=== PATIENT | male | born 1970 | race Caucasian/White ===

== ENCOUNTER 2020-10-30 12:09 | Outpatient (REF) | payer BC, SELFPAY ==
[2020-10-30 14:14] LABS: Estimated Average Glucose 220 mg/dL; Hemoglobin A1c % 9.3 %
[2020-10-30 14:24] LABS: Creatinine Urine 72.42 mg/dL; Microalbum/Creatinine Ratio Ur 106.3 ug/mg cr
[2020-10-30 14:39] LABS: Alanine Aminotransferase 44 U/L (0-40); Albumin Level 4.7 g/dL (3.5-5.0); Alkaline Phosphatase 74 U/L (39-117); Anion Gap 14 (12-20); Aspartate Amino Transferase 40 U/L (5-37); Bilirubin Total 0.9 mg/dL (0.0-1.0); Blood Urea Nitrogen 17 mg/dL (9-16); Calcium 9.5 mg/dL (8.4-10.2); Carbon Dioxide 28 mmol/L (22-29); Chloride 100 mmol/L (96-108); Estimated Glomerular Filt Rate > 60; Glucose Random 235 mg/dL (60-115); Potassium 3.7 mmol/l (3.3-5.1); Sodium 138 mmol/L (135-145); Total Protein 7.4 g/dL (6.5-8.0)
== END 2020-10-30 12:10 | disposition home or self-care (01) ==
LOC: HO.10HDL 12:09
PROVIDERS: Visit Provider Internal Medicine
DX: E11.9 Type 2 diabetes mellitus without complications (principal); J45.909 Unspecified asthma, uncomplicated; I10 Essential (primary) hypertension
CPT/HCPCS: 80053; 82043; 83036

== ENCOUNTER 2020-12-31 11:54 | Outpatient (REF) | payer BC, SELFPAY ==
[2020-12-31 13:56] LABS: MANUAL DIFF FLAG NO
[2020-12-31 14:12] LABS: Basophils Absolute Auto 0.1 X10*3/uL (0.0-0.2); Basophils Percent Auto 0.7 % (0-2); Eosinophils Absolute Auto 0.1 X10*3/uL (0.0-0.4); Eosinophils Percent Auto 1.3 % (0-4); Hematocrit 48.7 % (42-52); Imm Gran Abs Auto 0.04 X10*3/uL (0.00-0.03); Imm Gran Pct Auto 0.6 % (0.0-0.4); Lymphocytes Absolute Auto 1.8 X10*3/uL (1.2-4.9); Lymphocytes Percent Auto 24.6 % (20-40); Mean Corpuscular HGB Conc 32.9 g/dl (31.0-36.0); Mean Corpuscular Hemoglobin 30.4 pg (27.0-33.0); Mean Corpuscular Volume 92.6 fL (80-98); Mean Platelet Volume 10.8 fL (9.4-12.4); Monocytes Absolute Auto 0.6 X10*3/uL (0.1-1.2); Neutrophils Absolute Auto 4.6 X10*3/uL (2.0-8.3); Neutrophils Percent Auto 63.8 % (45-73); Platelet Count 205 X10*3/uL (160-400); Red Blood Count 5.26 X10*6/uL (4.60-5.80); Red Cell Distribution Width 13.2 % (11.0-16.0); White Blood Count 7.1 X10*3/uL (4.8-10.8)
[2020-12-31 14:19] LABS: Estimated Average Glucose 209 mg/dL; Hemoglobin A1c % 8.9 %
[2020-12-31 14:23] LABS: Glucose Urine UA 100 MG/DL (NEG); Leukocyte Esterase Urine NEG (NEG); Nitrite Urine NEG (NEG); PH 6.5 (5.0-8.0); Specific Gravity - Urine 1.015 (1.005-1.025); Urine Blood NEG (NEG); Urine Ketones NEG (NEG); Urine Protein NEG (NEG-TRACE)
[2020-12-31 14:25] LABS: Appearance Urine CLEAR; Color Urine STRAW
[2020-12-31 14:34] LABS: Alanine Aminotransferase 41 U/L (0-40); Albumin Level 4.6 g/dL (3.5-5.0); Alkaline Phosphatase 69 U/L (39-117); Anion Gap 16 (12-20); Aspartate Amino Transferase 37 U/L (5-37); Bilirubin Total 0.9 mg/dL (0.0-1.0); Blood Urea Nitrogen 12 mg/dL (9-16); Carbon Dioxide 27 mmol/L (22-29); Chloride 98 mmol/L (96-108); Cholesterol 155 mg/dL; Estimated Glomerular Filt Rate > 60; Glucose Fasting 240 mg/dL (60-99); HDL Cholesterol 37 mg/dL; LDL Cholesterol Calculated 101 mg/dl; Potassium 3.9 mmol/L (3.3-5.1); Sodium 137 mmol/L (135-145); Total Protein 7.6 g/dL (6.5-8.0); Triglycerides 89 mg/dL
[2020-12-31 14:46] LABS: Creatinine Urine 23.58 mg/dL; Microalbum/Creatinine Ratio Ur 207.8 ug/mg cr
== END 2020-12-31 11:55 | disposition home or self-care (01) ==
LOC: HO.10HDL 11:54
PROVIDERS: Visit Provider Internal Medicine
DX: Z00.00 Encounter for general adult medical examination without abnormal findings (principal); E11.9 Type 2 diabetes mellitus without complications; Z12.5 Encounter for screening for malignant neoplasm of prostate
CPT/HCPCS: 36415; 80053; 80061; 81003; 82043; 83036; 84153; 85025

== ENCOUNTER 2021-02-24 11:54 | Day surgery (SDC) | payer BC, SELFPAY ==
--- NOTE | 2021-02-22 14:32 | HO.ANESPROP2 ---
Documented by User: Sallie Morley 02/22/21 14:32 HPI - Anesthesia Eval Consult details Narrative: 50yo M for Upper Endoscopy and Colonoscopy [facility] Past Medical History Medical History Asthma COPD (chronic obstructive pulmonary disease) Costochondritis Diabetes HTN (hypertension) Surgical History Surgical History Hx of cardiac catheterization Hx of oral surgery Social History Social History Smoking Status: Former smoker Use of substances other than those prescribed or required for medical reasons: No Advance Directives: No Advance Directives Information Provided: Yes Meds Allergies Allergy/AdvReac Type Severity Reaction Status Date / Time No Known Allergies Allergy Unknown NO KNOWN Verified 02/24/21 12:22 ALLERGIES Home Medications Medication Instructions Recorded Confirmed Last Taken Type albuterol sulfate [ProAir HFA] 1 inh INHALATION Q4H PRN 02/18/21 02/18/21 Unknown History atorvastatin 40 mg PO DAILY 02/18/21 02/18/21 Unknown History fluticasone propionate [Flovent 2 puff INHALATION BID 02/18/21 02/18/21 Unknown History HFA] furosemide 1 tab PO TID 02/18/21 02/18/21 Unknown History glipizide 5 mg PO DAILY 02/18/21 02/18/21 Unknown History losartan 1 tab PO DAILY 02/18/21 02/18/21 Unknown History metformin 1 tab PO DAILY 02/18/21 02/18/21 Unknown History sitagliptin [Januvia] 1 tab PO DAILY 02/18/21 02/18/21 Unknown History Exam Exam Date and Time: February 22, 2021 1432 Assessment and Plan Assessment Anesthesia Assessment: Chart Reviewed Documented by User: Nereyda Christine 02/24/21 12:47 [facility] Past Medical History Medical History Asthma COPD (chronic obstructive pulmonary disease) Costochondritis Diabetes HTN (hypertension) Surgical History Surgical History Hx of cardiac catheterization Hx of oral surgery Social History Social History Smoking Status: Former smoker Use of substances other than those prescribed or required for medical reasons: No Advance Directives: No Advance Directives Information Provided: Yes Meds Allergies Allergy/AdvReac Type Severity Reaction Status Date / Time No Known Allergies Allergy Unknown NO KNOWN Verified 02/24/21 12:22 ALLERGIES Home Medications Medication Instructions Recorded Confirmed Last Taken Type albuterol sulfate [ProAir HFA] 1 inh INHALATION Q4H PRN 02/18/21 02/18/21 Unknown History atorvastatin 40 mg PO DAILY 02/18/21 02/18/21 Unknown History fluticasone propionate [Flovent 2 puff INHALATION BID 02/18/21 02/18/21 Unknown History HFA] furosemide 1 tab PO TID 02/18/21 02/18/21 Unknown History glipizide 5 mg PO DAILY 02/18/21 02/18/21 Unknown History losartan 1 tab PO DAILY 02/18/21 02/18/21 Unknown History metformin 1 tab PO DAILY 02/18/21 02/18/21 Unknown History sitagliptin [Januvia] 1 tab PO DAILY 02/18/21 02/18/21 Unknown History Exam Airway Mallampati Class: III TM Dist: >3cm Loose/Missing/Broken Teeth: No Heart: RRR Lungs: CTA Assessment and Plan Assessment Anesthesia Assessment: Anesthesia Plan Discussed and Chart Reviewed Final Anesthetic Review NPO: Yes ASA Class: III Final Preanesthetic Review: Meds/Allgs Chart Reviewed, Consent Obtained/Reviewed and Anes Risks/Benef Reviewed Patient Risk: Intermediate Procedure Risk: Intermediate Anesthetic Plan Anesthetic Plan: MAC: Disposition: Standard PACU
--- NOTE | 2021-02-23 13:49 | MHC.SHP ---
Pre-Procedural Eval Section A The patient is an INPATIENT: No Changes since office visit: No Cold of Flu in the past 2 weeks, No New Medical Problems, No Changes in Medication and No Patient answered all questions The History & Physical has been completed within 30 days and I have reviewed it.: Yes Section B Chief Complaint: reflux,screening Allergies: Allergies Allergy/AdvReac Type Severity Reaction Status Date / Time No Known Allergies Allergy Unknown NO KNOWN Unverified 08/13/20 15:35 ALLERGIES Plan I have reviewed the history and physical and performed a pertinent physical examination on my patient. No changes have occurred unless specified.
[2021-02-24 12:24] VITALS: BP 155/96; PULSE 79; RESP 18; TEMP 36.7; O2SAT 95; BMI 33.5
[2021-02-24] MEDS: Lactated Ringers 1,000 ML 100 ML IVCONT (12:46)
[2021-02-24 12:49] LABS: Glucose, Whole Blood 133 mg/dL (60-115)
[2021-02-24 13:45] VITALS: BP 99/63; PULSE 68; RESP 16; TEMP 37.3; O2SAT 98
[2021-02-24 13:51] VITALS: BP 104/68
[2021-02-24 14:00] VITALS: BP 136/78; PULSE 68; RESP 17; TEMP 36.2; O2SAT 98
--- NOTE | 2021-02-24 21:44 | OP_ITS ---
SURGEON: Edenilson uHi MD INDICATIONS: 1. Gastroesophageal reflux disease. 2. Colon cancer screening. PREOPERATIVE DIAGNOSIS: POSTOPERATIVE DIAGNOSIS: PROCEDURE PERFORMED: ESTIMATED BLOOD LOSS: COMPLICATIONS: ANESTHESIA: Medications, monitored anesthesia care. ASSISTANTS: SPECIMENS: PROCEDURES PERFORMED: 1. Upper endoscopy with biopsy. 2. Colonoscopy to the terminal ileum with biopsy and snare polypectomy. DESCRIPTION OF PROCEDURE: History and physical performed. The risks and benefits of the procedure were explained to the patient. Informed consent was obtained. The patient was placed in left lateral decubitus position. The Olympus video gastroscope was introduced into the esophagus, stomach, and duodenum. Examination was performed. The scope was removed. He was repositioned for colonoscopy. A digital rectal exam was performed and was found to be normal. The Olympus pediatric video colonoscope was introduced into the rectum and advanced to the cecum without difficulty. The cecum was identified by transillumination, palpation, and identification of ileocecal valve. Examination was performed. The scope was removed. He tolerated both procedures well and was returned to recovery area in stable condition. FINDINGS: UPPER ENDOSCOPY: ESOPHAGUS: The esophagus was normal. The EG junction was slightly irregular. This was biopsied. STOMACH: Showed no evidence of masses, ulcers, or polyps. Antral biopsies were obtained to rule out H pylori. DUODENUM: The bulb and second portion was normal. COLONOSCOPY: The terminal ileum was normal. The visualized colonic mucosa was normal. Three polyps were identified and removed. The first polyp was located at 80 cm, second was located at 50 cm, both were removed with snare and measured less than 10 mm. In the rectum was less than 5 mm sessile polyp, it was removed with biopsy forceps. There was mild sigmoid diverticulosis. Retroflexed examination showed small internal hemorrhoids. IMPRESSION: 1. Gastroesophageal reflux disease. 2. Colon polyps. RECOMMENDATIONS: Follow up the biopsy results. MD ANTONETTE Aly/LIMAL / [id number]
== END 2021-02-24 14:53 | disposition home or self-care (01) ==
PROVIDERS: PCP Internal Medicine; Visit Provider Internal Medicine Gastroenterology
PROC: (CPT 45385; principal; 2021-02-24 13:00)
DX: Z12.11 Encounter for screening for malignant neoplasm of colon (principal); D12.5 Benign neoplasm of sigmoid colon; K63.5 Polyp of colon; K62.1 Rectal polyp; K21.9 Gastro-esophageal reflux disease without esophagitis; J44.9 Chronic obstructive pulmonary disease, unspecified; I10 Essential (primary) hypertension; E11.9 Type 2 diabetes mellitus without complications; Z79.84 Long term (current) use of oral hypoglycemic drugs; Z79.899 Other long term (current) drug therapy; Z87.891 Personal history of nicotine dependence
CPT/HCPCS: 45385; 45380; 43239; 82947; 88305; 88342

== ENCOUNTER 2021-04-01 12:14 | Outpatient (REF) | payer BC, SELFPAY ==
[2021-04-01 14:14] LABS: MANUAL DIFF FLAG NO
[2021-04-01 14:25] LABS: Basophils Percent Auto 0.5 % (0-2); Eosinophils Absolute Auto 0.1 X10*3/uL (0.0-0.4); Eosinophils Percent Auto 0.8 % (0-4); Hematocrit 45.4 % (42-52); Hemoglobin 15.2 g/dl (14.0-18.0); Imm Gran Abs Auto 0.04 X10*3/uL (0.00-0.03); Imm Gran Pct Auto 0.5 % (0.0-0.4); Lymphocytes Absolute Auto 1.7 X10*3/uL (1.2-4.9); Lymphocytes Percent Auto 21.5 % (20-40); Mean Corpuscular HGB Conc 33.5 g/dl (31.0-36.0); Mean Corpuscular Hemoglobin 30.3 pg (27.0-33.0); Mean Corpuscular Volume 90.4 fL (80-98); Mean Platelet Volume 10.2 fL (9.4-12.4); Monocytes Absolute Auto 0.7 X10*3/uL (0.1-1.2); Monocytes Percent Auto 8.7 % (2-11); Neutrophils Absolute Auto 5.3 X10*3/uL (2.0-8.3); Platelet Count 192 X10*3/uL (160-400); Red Blood Count 5.02 X10*6/uL (4.60-5.80); Red Cell Distribution Width 13.3 % (11.0-16.0); White Blood Count 7.8 X10*3/uL (4.8-10.8)
[2021-04-01 14:39] LABS: Alanine Aminotransferase 26 U/L (0-40); Albumin Level 4.6 g/dL (3.5-5.0); Alkaline Phosphatase 67 U/L (39-117); Anion Gap 14 (12-20); Aspartate Amino Transferase 24 U/L (5-37); Bilirubin Total 1.2 mg/dL (0.0-1.0); Blood Urea Nitrogen 10 mg/dL (9-16); Calcium 9.8 mg/dL (8.4-10.2); Carbon Dioxide 29 mmol/L (22-29); Chloride 101 mmol/L (96-108); Estimated Glomerular Filt Rate > 60; Glucose Random 135 mg/dL (60-115); Potassium 3.8 mmol/L (3.3-5.1); Sodium 140 mmol/L (135-145); Total Protein 7.4 g/dL (6.5-8.0)
[2021-04-01 14:50] LABS: Estimated Average Glucose 169 mg/dL; Hemoglobin A1c % 7.5 %
== END 2021-04-01 12:15 | disposition home or self-care (01) ==
LOC: HO.10HDL 12:14
PROVIDERS: Visit Provider Internal Medicine
DX: E11.9 Type 2 diabetes mellitus without complications (principal); K21.9 Gastro-esophageal reflux disease without esophagitis; I10 Essential (primary) hypertension; J45.909 Unspecified asthma, uncomplicated
CPT/HCPCS: 36415; 80053; 83036; 85025

== ENCOUNTER 2021-09-23 12:51 | Outpatient (REF) | payer BC, SELFPAY ==
[2021-09-23 14:11] LABS: Estimated Average Glucose 140 mg/dL; Hemoglobin A1c % 6.5 %
[2021-09-23 14:17] LABS: Appearance Urine CLEAR; Color Urine YELLOW; Glucose Urine UA 100 MG/DL (NEG); Leukocyte Esterase Urine NEG (NEG); Nitrite Urine NEG (NEG); Specific Gravity - Urine 1.025 (1.005-1.025); Urine Blood NEG (NEG); Urine Ketones NEG (NEG); Urine Protein 2+ MG/DL (NEG-TRACE)
[2021-09-23 14:29] LABS: Mucus Urine TRACE /LPF; RBC Urine 0-2 /HPF (0); Squamous Epithelial Cell Urine TRACE /LPF; WBC Urine 0-2 /HPF (0-4)
[2021-09-23 14:45] LABS: Alanine Aminotransferase 25 U/L (0-40); Albumin Level 4.8 g/dL (3.5-5.0); Alkaline Phosphatase 65 U/L (39-117); Anion Gap 13 (12-20); Aspartate Amino Transferase 24 U/L (5-37); Bilirubin Total 0.8 mg/dL (0.0-1.0); Blood Urea Nitrogen 10 mg/dL (9-16); Calcium 9.6 mg/dL (8.4-10.2); Carbon Dioxide 28 mmol/L (22-29); Chloride 102 mmol/L (96-108); Creatinine Urine 163.07 mg/dL; Estimated Glomerular Filt Rate > 60; Glucose Random 199 mg/dL (60-115); Microalbum/Creatinine Ratio Ur 231.1 ug/mg cr; Potassium 3.9 mmol/L (3.3-5.1); Sodium 139 mmol/L (135-145); Total Protein 7.7 g/dL (6.5-8.0)
== END 2021-09-23 12:52 | disposition home or self-care (01) ==
LOC: HO.10HDL 12:51
PROVIDERS: Visit Provider Internal Medicine
DX: E11.9 Type 2 diabetes mellitus without complications (principal); I10 Essential (primary) hypertension; R10.9 Unspecified abdominal pain
CPT/HCPCS: 36415; 80053; 81001; 81003; 82043; 83036

== ENCOUNTER → 2021-12-08 15:12 | Outpatient (BNVA) | payer BC, SELFPAY | PROVIDERS: PCP Internal Medicine; Visit Provider Internal Medicine ==

== ENCOUNTER → 2022-02-09 14:56 | Outpatient (BNVA) | payer BC, SELFPAY | PROVIDERS: PCP Internal Medicine; Visit Provider Internal Medicine | DX: G47.33 Obstructive sleep apnea (adult) (pediatric) (principal); J45.909 Unspecified asthma, uncomplicated; Z99.89 Dependence on other enabling machines and devices; Z79.899 Other long term (current) drug therapy | CPT/HCPCS: 99212 ==

== ENCOUNTER → 2022-03-23 16:21 | Outpatient (REF) | payer BC, SELFPAY | LOC: HO.SL 16:21 | PROVIDERS: PCP Internal Medicine; Visit Provider Internal Medicine | DX: G47.33 Obstructive sleep apnea (adult) (pediatric) (principal) | CPT/HCPCS: 95806 ==

== ENCOUNTER 2022-09-06 15:24 | Outpatient (REF) | payer BC, SELFPAY ==
[2022-09-06 16:13] LABS: Influenza A PCR NEGATIVE (Negative); Influenza B PCR NEGATIVE (Negative); Resp Syncy Virus RNA Qual PCR NEGATIVE (Negative); SARS COV2 PCR INHOUSE NEGATIVE (Negative)
== END 2022-09-06 15:25 | disposition home or self-care (01) ==
LOC: HO.LNP 15:24
PROVIDERS: Visit Provider Internal Medicine
DX: Z20.822 Contact with and (suspected) exposure to COVID-19 (principal); R05.9 Cough, unspecified; R51.9 Headache, unspecified
CPT/HCPCS: 0241U

== ENCOUNTER 2022-09-07 12:59 | Outpatient (REF) | payer BC, SELFPAY ==
--- NOTE | ~2022-09-07 | XR_ITS ---
EXAMINATION: XR CHEST CLINICAL INFORMATION: Cough, hypertension COMPARISON: None TECHNIQUE: 2 views of the chest were obtained. FINDINGS: No significant abnormality is noted involving the heart, lungs, mediastinum, bony thorax or soft tissues. XR/XR chest 2V IMPRESSION: Unremarkable chest examination.
[2022-09-07 13:51] LABS: MANUAL DIFF FLAG NO
[2022-09-07 14:18] LABS: Basophils Absolute Auto 0.1 X10*3/uL (0.0-0.2); Basophils Percent Auto 0.7 % (0-2); Eosinophils Absolute Auto 0.2 X10*3/uL (0.0-0.4); Eosinophils Percent Auto 2.7 % (0-4); Hematocrit 47.4 % (42.0-52.0); Hemoglobin 16.3 g/dl (14.0-18.0); Imm Gran Abs Auto 0.06 X10*3/uL (0.00-0.03); Imm Gran Pct Auto 0.7 % (0.0-0.4); Lymphocytes Absolute Auto 1.9 X10*3/uL (1.2-4.9); Lymphocytes Percent Auto 23.2 % (20-40); Mean Corpuscular HGB Conc 34.4 g/dl (31.0-36.0); Mean Corpuscular Volume 90.3 fL (80.0-98.0); Mean Platelet Volume 10.2 fL (9.4-12.4); Monocytes Absolute Auto 0.6 X10*3/uL (0.1-1.2); Monocytes Percent Auto 6.9 % (2-11); Neutrophils Absolute Auto 5.3 x10*3/uL (2.0-8.3); Neutrophils Percent Auto 65.8 % (45-73); Platelet Count 163 X10*3/uL (160-400); Red Blood Count 5.25 X10*6/uL (4.60-5.80); Red Cell Distribution Width 13.4 % (11.0-16.0); White Blood Count 8.1 X10*3/uL (4.8-10.8)
[2022-09-07 14:44] LABS: Estimated Average Glucose 140 mg/dL; Hemoglobin A1c % 6.5 %
[2022-09-07 14:55] LABS: Alanine Aminotransferase 22 U/L (0-40); Albumin Level 4.3 g/dL (3.5-5.0); Alkaline Phosphatase 74 U/L (39-117); Anion Gap 14 (12-20); Aspartate Amino Transferase 21 U/L (5-37); Bilirubin Total 0.6 mg/dL (0.0-1.0); Blood Urea Nitrogen 11 mg/dL (9-16); Calcium 9.2 mg/dL (8.4-10.2); Carbon Dioxide 28 mmol/L (22-29); Chloride 104 mmol/L (96-108); Estimated Glomerular Filt Rate > 60; Glucose Random 175 mg/dL (60-115); Potassium 4.1 mmol/L (3.3-5.1); Sodium 142 mmol/L (135-145)
== END 2022-09-07 13:00 | disposition home or self-care (01) ==
LOC: HO.10HDL 12:59
PROVIDERS: Visit Provider Internal Medicine
DX: R05.9 Cough, unspecified (principal); I10 Essential (primary) hypertension; E11.9 Type 2 diabetes mellitus without complications; K21.9 Gastro-esophageal reflux disease without esophagitis
CPT/HCPCS: 36415; 71046; 80053; 83036; 85025

== ENCOUNTER → 2022-12-14 14:36 | Outpatient (BNVA) | payer BC, SELFPAY | PROVIDERS: PCP Internal Medicine; Visit Provider Internal Medicine | DX: Z13.89 Encounter for screening for other disorder (principal) ==

== ENCOUNTER 2023-03-01 13:17 | Outpatient (REF) | payer BC, SELFPAY ==
--- NOTE | ~2023-03-01 | XR_ITS ---
EXAMINATION: XR CHEST CLINICAL INFORMATION: Cough and congestion. Covid positive. COMPARISON: Previous chest x-ray most recent August 2022 TECHNIQUE: 2 views of the chest were obtained. FINDINGS: The cardiac and mediastinal contours are stable. The lungs are clear. No pleural effusion or pneumothorax. Degenerative changes of the spine. XR/XR chest 2V IMPRESSION: No evidence for acute disease in the chest.
== END 2023-03-01 13:18 | disposition home or self-care (01) ==
LOC: HO.XRAY 13:17
PROVIDERS: PCP Internal Medicine; Visit Provider Internal Medicine
DX: R05.9 Cough, unspecified (principal); U07.1 COVID-19
CPT/HCPCS: 71046

== ENCOUNTER 2023-04-12 14:18 | Outpatient (REF) | payer BC, SELFPAY ==
[2023-04-12 16:30] LABS: Estimated Average Glucose 214 mg/dL; Hemoglobin A1c % 9.1 %
[2023-04-12 16:48] LABS: Alanine Aminotransferase 29 U/L (0-40); Albumin Level 4.5 g/dL (3.5-5.0); Alkaline Phosphatase 72 U/L (39-117); Anion Gap 16 (12-20); Aspartate Amino Transferase 24 U/L (5-37); Bilirubin Total 1.2 mg/dL (0.0-1.0); Blood Urea Nitrogen 14 mg/dL (9-16); Calcium 9.6 mg/dL (8.4-10.2); Carbon Dioxide 26 mmol/L (22-29); Chloride 101 mmol/L (96-108); Estimated Glomerular Filt Rate > 60; Glucose Random 265 mg/dL (60-115); Potassium 3.9 mmol/L (3.3-5.1); Sodium 139 mmol/L (135-145); Total Protein 7.3 g/dL (6.5-8.0)
== END 2023-04-12 14:19 | disposition home or self-care (01) ==
LOC: HO.LAB 14:18
PROVIDERS: PCP Internal Medicine; Visit Provider Internal Medicine
DX: E11.9 Type 2 diabetes mellitus without complications (principal); I10 Essential (primary) hypertension; D64.9 Anemia, unspecified
CPT/HCPCS: 36415; 80053; 83036

== ENCOUNTER 2023-06-23 14:51 | Emergency (ER) | payer BC, SELFPAY ==
[2023-06-23 15:11] VITALS: BP 148/85; PULSE 86; RESP 16; TEMP 37.4; O2SAT 96; BMI 29.8
--- NOTE | 2023-06-23 15:11 | ED.GENADULT ---
HPI - General Adult General Chief complaint: Back Pain/Injury Stated complaint: Low Back Pain No Injury Time Seen by Provider: 06/23/23 15:28 Source: patient Mode of arrival: ambulatory Limitations: no limitations History of Present Illness HPI narrative: Patient is a 52 year old assigned male at with a history of diabetes and asthma presenting to the emergency department today with low back pain and a groin yeast infection. Patient states that over the last few days he has had low back pain and a worsening yeast infection of his groin. Patient states that he knows his sugar is high and he is working towards resolving that. Patient states that he has a history of a herniated disc and he believes that is what is causing his pain. Patient states that he has a yeast infection of the groin that he has been trying to lotions for but it is not working. Patient denies any dizziness, lightheadedness, abdominal pain, nausea, vomiting, fever, chills, blurry vision, double vision, loss of vision, chest pain, difficulty breathing, shortness of breath, night sweats, pain with urination, increased urinary frequency, increased urinary urgency, blood in his urine or stool, syncope or a near syncopal episode, recent trauma or falls, bowel incontinence, bladder incontinence, bowel retention, bladder retention, or any other complaints at this time. Onset (ago): day(s) Location: back Radiation: non-radiation Severity: mild Severity scale (1-10): 3 Quality: aching and dull Pain Consistency: constant Relieving factors: none Exacerbating factors: none Associated symptoms: denies other symptoms Treatments prior to arrival: none Related Data Home Medications Medication Instructions Recorded Confirmed atorvastatin 40 mg tablet 40 mg PO DAILY 02/18/21 12/14/22 furosemide 20 mg tablet 1 tab PO TID 02/18/21 12/14/22 losartan 50 mg tablet 1 tab PO DAILY 02/18/21 12/14/22 sitagliptin phosphate 100 mg 1 tab PO DAILY 02/18/21 12/14/22 tablet (Januvia) betamethasone valerate 0.1 % appl topical 12/08/21 12/14/22 topical cream glipizide 5 mg tablet, extended 10 mg PO DAILY 05/11/22 12/14/22 release 24 hr albuterol sulfate 90 mcg/actuation 2 puff inhalation Q6H PRN 12/14/22 12/14/22 aerosol inhaler (Ventolin HFA) Previous Rx's Medication Instructions Recorded fluticasone propionate 220 2 puff inhalation BID ASTHMA 30 12/14/22 mcg/actuation HFA aerosol inhaler days #12 grams (Flovent HFA) cyclobenzaprine 5 mg tablet 5 mg PO TID PRN muscle spasm 7 06/23/23 days #21 tabs fluconazole 150 mg tablet 150 mg PO Q3D 2 doses #2 tabs 06/23/23 (Diflucan) naproxen 500 mg tablet 500 mg PO BID 7 days #14 tabs 06/23/23 Allergies Allergy/AdvReac Type Severity Reaction Status Date / Time No Known Allergies Allergy Unknown NO KNOWN Verified 12/14/22 15:20 ALLERGIES Review of Systems Constitutional: Constitutional: Reports no additional constitutional complaints, Denies chills, Denies fever(s) and Denies night sweats Eyes: Eyes: Reports no additional eye complaints, Denies blurry vision, Denies change in vision, Denies diplopia, Denies eye discharge, Denies loss of vision and Denies eye pain ENT: Denies dizziness Cardiovascular: Cardiovascular: Reports no additional cardiovascular complaints, Denies chest pain, Denies lightheadedness, Denies Loss of Consciousness and Denies dyspnea Respiratory: Respiratory: Reports no additional respiratory complaints and Denies dyspnea Gastrointestinal: Gastrointestinal: Reports no additional gastrointestinal complaints, Denies abdominal pain, Denies melena, Denies hematochezia, Denies change in bowel habits and Denies change in stool character Genitourinary: Genitourinary: Reports no additional male genitourinary complaints, Denies hematuria, Denies oliguria, Denies difficulty urinating, Denies dysuria, Denies urinary frequency, Denies urinary hesitancy, Denies urinary incontinence and Denies urinary urgency Comments: yeast infection of the groin Musculoskeletal: Musculoskeletal: Reports no additional musculoskeletal complaints, Reports back pain, Denies numbness and Denies tingling Neurologic: Denies dizziness, Denies loss of vision, Denies numbness and Denies tingling Psychiatric: Psychiatric: Reports no additional psychiatric complaints Endocrine: Endocrine: Reports no additional endocrine complaints Hematologic/Lymphatic: Hematologic/Lymphatic: Reports no additional hematologic/lymphatic complaints Allergic/Immunologic: Allergic/Immunologic: Reports no additional allergic/immunologic complaints PMFSH Past Medical History Attestation statement: The following information was validated with the patient. Source: old records reviewed and nursing notes reviewed Medical History Asthma Asthma COPD (chronic obstructive pulmonary disease) Costochondritis Diabetes HTN (hypertension) VIBHA on CPAP Surgical History Hx of cardiac catheterization Hx of oral surgery Social History Social History Patient Tobacco Use Status: Former Tobacco user Cigarette Packs Per Day: 1 Cigarettes Per Day: 20 Advance Directives: No Advance Directives Information Provided: Yes Physical Exam ED Vital Signs: Vital Signs - 24 hr 06/23/23 15:11 Temperature 99.3 F Pulse Rate 86 Respiratory Rate 16 Blood Pressure 148/85 H Pulse Oximetry 96 Oxygen Delivery Method Room Air BMI result Body Mass Index 29.8 Const General: cooperative, no acute distress, alert and awake Nutritional Appearance: well nourished Orientation/consciousness: patient oriented x3 Limitations: no limitations HENMT Head: Yes normal to inspection and Yes atraumatic Ears: hearing grossly normal bilaterally and external ears normal General nose exam: Normal external nose present, no nasal discharge noted and no epistaxis Face and sinus: Yes normal facial exam, No abrasion and No laceration Mouth: Normal oral and palatal mucosa present, no drooling and no muffled voice Eyes General: appearance normal, both eyes and all related structures Periorbital: periorbital findings normal Eyelids: Yes eyelids normal Conjunctivae: conjunctivae normal Pupils: Equal, round and reactive pupils present EOM: EOMs intact bilaterally Neck Neck: Yes normal visual inspection, Yes full ROM and Yes no lymphadenopathy Chest Chest palpation & inspection: normal inspection of the chest Resp Effort & Inspection: normal respiratory effort and able to speak in complete sentences Auscultation: clear to auscultation bilaterally Cardio Rate: regular rate Rhythm: regular rhythm GI Inspection: Yes normal to inspection General: Yes no CVA tenderness Back/Spine/Pelvis Back: no CVA tenderness Cervical Spine: normal cervical lordosis and cervical ROM normal Thoracic/Lumbar Spine: thoracic and lumbar spine normal to inspection and thoraco-lumbar ROM normal Neuro General: patient oriented x3 and moves all extremities Cranial nerves: Yes Equal, round and reactive pupils present Cognition (Neuro): normal cognition Motor exam (neuro): 5/5 motor strength present throughout Sensory Exam: Normal double simultaneous stimulation for sensation Coordination: [id number] test normal Extrem General: Yes normal to inspection, Yes full ROM and Yes capillary refill normal Psych Appearance: grossly normal Mental Status: mental status grossly normal Affect: normal affect Attitude: cooperative Thought process: Normal thought process present Thought content: Normal thought content present Insight: Good insight present (Psych) Medications Administered Discontinued Medications Generic Name Dose Route Start Last Admin Trade Name [place] PRN Reason Stop Dose Admin Cyclobenzaprine HCl 5 mg 06/23/23 15:35 06/23/23 16:03 Cyclobenzaprine Hcl 5 Mg Tablet PO 06/23/23 15:36 5 mg ONCE ONE Administration Ketorolac Tromethamine 15 mg 06/23/23 15:35 06/23/23 16:03 Ketorolac Tromethamine 15 Mg/Ml Vial IM 06/23/23 15:36 15 mg ONCE ONE Administration Medical Decision Making Medical Decision Making MDM Narrative: Patient is a 52 year old assigned male at with a history of COPD and asthma presenting to the emergency department today with low back pain and a yeast infection of the grin. Patient's physical exam was unremarkable. Patient's sugar was elevated however the patient confirmed this is his baseline and he is addressing it on his own. I explained my physical exam findings as well as all test results to the patient. I answered all questions asked by the patient. I stressed the importance of the patient taking his medication as prescribed. I stressed the importance of the patient following up with his primary care provider and a clinical trials specialist. I stressed the importance of the patient returning to the emergency department immediately if his symptoms were to worsen or if he were to develop any dizziness, shortness of breath, difficulty breathing, chest pain, blurry vision, loss of vision, nausea, vomiting, abdominal pain, fever, chills, back pain, or any other complaints. Patient verbalized agreement and understanding with this treatment plan and discharge. Differential Diagnosis Differential Diagnoses: The differential diagnosis associated with the presentation includes Low back pain Herniated disc Yeast infection Lab Data [facility] Lab Attestation statement: I reviewed the patient's lab results. My interpretation of this result is in the MDM portion of this chart. Labs: Lab Results 06/23/23 Range/Units 15:14 POC Glucose 429 H* (60-115) mg/dL Prescription Management I considered prescription management with: Pain Medication (patient prescribed pain medication.) Chronic Conditions Patient?s care impacted by: Diabetes Discharge Plan Discharge Clinical Impression: Low back pain, Yeast infection Patient Disposition: Home, Self-Care Instructions: Back Pain (ED), Skin Yeast Infection (ED) Additional Instructions: Follow up with your primary care provider. Return to the emergency department immediately if your symptoms worsen or if you develop any dizziness, shortness of breath, difficulty breathing, chest pain, blurry vision, loss of vision, nausea, vomiting, abdominal pain, fever, chills, back pain, or any other complaints. Prescriptions: New fluconazole [Diflucan] 150 mg tablet 150 mg PO Q3D Qty: 2 0RF cyclobenzaprine 5 mg tablet 5 mg PO TID PRN (Reason: muscle spasm) 7 Days Qty: 21 0RF naproxen 500 mg tablet 500 mg PO BID 7 Days Qty: 14 0RF No Action losartan 50 mg tablet 1 tab PO DAILY atorvastatin 40 mg tablet 40 mg PO DAILY furosemide 20 mg tablet 1 tab PO TID Januvia 100 mg tablet 1 tab PO DAILY glipizide 5 mg tablet extended release 24 hr 10 mg PO DAILY betamethasone valerate 0.1 % cream topical albuterol sulfate [Ventolin HFA] 90 mcg/actuation HFA aerosol inhaler 2 puff inhalation Q6H PRN Flovent HFA 220 mcg/actuation HFA aerosol inhaler 2 puff inhalation BID 30 Days Qty: 12 5RF Referrals: [facility] [Provider Group] (Call to establish and follow up with a clinical trials specialist. ) Serge Wiley MD [Primary Care Provider] - Stand Alone Forms: Work/School Release Interventions: ED Discharge Assessment Last Done: 06/23/23 16:13 Discharge Date/Time: 06/23/23 16:13 Print Language: Greenlandic
[2023-06-23 15:18] LABS: Glucose, Whole Blood 429 mg/dL (60-115)
[2023-06-23] MEDS: Cyclobenzaprine HCl 5 MG TABLET PO (16:03)
[2023-06-23] MEDS: Ketorolac Tromethamine 15 MG/ML VIAL IM (16:03)
== END 2023-06-23 16:13 | disposition home or self-care (01) ==
PROVIDERS: Emergency Provider Emergency Medicine Emergency Medical Services; PCP Internal Medicine
DX: M54.50 Low back pain, unspecified (principal); B37.9 Candidiasis, unspecified; Z87.891 Personal history of nicotine dependence; Z79.899 Other long term (current) drug therapy
CPT/HCPCS: 82947; 96372; 99283; 99284; J1885

== ENCOUNTER 2023-08-02 14:12 | Outpatient (REF) | payer BC, SELFPAY ==
[2023-08-02 14:25] LABS: MANUAL DIFF FLAG NO
[2023-08-02 14:51] LABS: Basophils Absolute Auto 0.1 X10*3/uL (0.0-0.2); Basophils Percent Auto 0.9 % (0-2); Eosinophils Absolute Auto 0.1 X10*3/uL (0.0-0.4); Eosinophils Percent Auto 1.3 % (0-4); Hematocrit 46.4 % (42.0-52.0); Hemoglobin 15.7 g/dl (14.0-18.0); Imm Gran Abs Auto 0.09 X10*3/uL (0.00-0.03); Imm Gran Pct Auto 1.1 % (0.0-0.4); Lymphocytes Absolute Auto 2.2 X10*3/uL (1.2-4.9); Lymphocytes Percent Auto 26.3 % (20-40); Mean Corpuscular HGB Conc 33.8 g/dl (31.0-36.0); Mean Corpuscular Hemoglobin 30.1 pg (27.0-33.0); Mean Corpuscular Volume 89.1 fL (80.0-98.0); Mean Platelet Volume 10.4 fL (9.4-12.4); Monocytes Absolute Auto 0.8 X10*3/uL (0.1-1.2); Monocytes Percent Auto 9.8 % (2-11); Neutrophils Percent Auto 60.6 % (45-73); Platelet Count 182 X10*3/uL (160-400); Red Blood Count 5.21 X10*6/uL (4.60-5.80); Red Cell Distribution Width 13.2 % (11.0-16.0); White Blood Count 8.2 X10*3/uL (4.8-10.8)
[2023-08-02 15:07] LABS: Estimated Average Glucose 289 mg/dL; Hemoglobin A1c % 11.7 % (<6.0)
[2023-08-02 18:28] LABS: Alanine Aminotransferase 31 U/L (0-40); Albumin Level 4.6 g/dL (3.5-5.0); Alkaline Phosphatase 71 U/L (39-117); Anion Gap 15 (12-20); Aspartate Amino Transferase 26 U/L (5-37); Bilirubin Total 0.9 mg/dL (0.0-1.0); Blood Urea Nitrogen 12 mg/dL (9-16); Calcium 10.3 mg/dL (8.4-10.2); Carbon Dioxide 26 mmol/L (22-29); Chloride 97 mmol/L (96-108); Estimated Glomerular Filt Rate > 60; Glucose Random 507 mg/dL (60-115); Potassium 4.2 mmol/L (3.3-5.1); Sodium 134 mmol/L (135-145); Total Protein 7.9 g/dL (6.5-8.0)
== END 2023-08-02 14:13 | disposition home or self-care (01) ==
LOC: HO.LAB 14:12
PROVIDERS: PCP Internal Medicine; Visit Provider Internal Medicine
DX: E11.9 Type 2 diabetes mellitus without complications (principal); J45.909 Unspecified asthma, uncomplicated; K21.9 Gastro-esophageal reflux disease without esophagitis
CPT/HCPCS: 36415; 80053; 83036; 85025

== ENCOUNTER 2023-08-16 13:43 | Outpatient (AMB) | payer BC, SELFPAY ==
[2023-08-16 13:56] VITALS: BP 140/78; PULSE 116; O2SAT 94; BMI 37.3
--- NOTE | 2023-08-16 13:56 | MHC.OFFVIS ---
Intake Vital Signs 08/16/23 13:56 Height 6 ft Weight 275 lb BMI 37.3 BP 140/78 H Blood Pressure Location Lt brachial Position Sitting Pulse 116 H Pulse Source Pulse Oximeter Pulse Oximetry (%) 94 Oxygen Delivery Method Room Air Intake Visit Reasons: Obstructive sleep apnea Intake Note: pt is here for follow up and states his breathing is not good, Flovent is way up in cost and needs different inhaler,. Television Service Engineer Required: No Allergies No Known Allergies Allergy (Unknown, Verified 08/16/23 14:23) NO KNOWN ALLERGIES Medication List - Last Reconciled 08/16/23 by Slime Lerma MD albuterol sulfate 90 mcg/actuation (Ventolin HFA) 2 puffs inhalation Q6H PRN atorvastatin 40 mg PO DAILY betamethasone valerate 0.1% appl topical cyclobenzaprine 5 mg PO TID PRN 7 days fluticasone propionate 220 mcg/actuation (Flovent HFA) 2 puffs inhalation BID 30 days furosemide 1 tab PO TID glipizide ER 10 mg PO BID losartan 1 tab PO DAILY naproxen 500 mg PO BID 7 days sitagliptin phosphate (Januvia) 1 tab PO DAILY Do you need a note to return to daycare/school/sports/work: No HPI Obstructive sleep apnea HPI Details This 53 years old gentleman is here for his routine 6 months follow-up. He has mild intermittent dyspnea and wheezing, He has not been able to get Flovent due to the cost. So uses albuterol once or twice a day. Has past history of obstructive sleep apnea but it got better after he lost weight. Even though he has put on some weight he still denies any symptoms of sleep apnea. Overall has been stable. [facility] Medical History VIBHA on CPAP Asthma Costochondritis Diabetes HTN (hypertension) Asthma COPD (chronic obstructive pulmonary disease) Surgical History Hx of oral surgery Hx of cardiac catheterization Social History Patient Tobacco Use Status: Former Tobacco user Cigarette Packs Per Day: 1 Cigarettes Per Day: 20 Review of Systems Const All systems reviewed & are unremarkable except as noted in HPI and below Denies snoring Eyes Reports no additional complaints ENT Reports no additional complaints Card Denies chest pain, Denies irregular heart rhythm and Denies leg edema Resp Denies cough, Denies snoring and Denies wheezing GI Reports no additional complaints Reports nocturia Musc Reports no additional complaints Skin/Breast Reports system reviewed and no additional complaints, except as documented Neuro Reports no additional complaints Psych Reports no additional complaints Aller/Immun Denies wheezing Physical Exam Vital Signs: Last Vital Signs Pulse 116 H 08/16/23 13:56 BP 140/78 H 08/16/23 13:56 Pulse Ox 94 08/16/23 13:56 Oxygen Delivery Method Room Air 08/16/23 13:56 BMI result Body Mass Index 37.3 Const General: healthy appearing, comfortable, no acute distress, alert and awake Orientation/consciousness: patient oriented x3 HEENT Head: Yes normal to inspection General nose exam: No nasal polyps present and No nasal discharge present Face and sinus: Yes sinuses nontender Mouth: oropharynx normal Throat: Yes posterior oropharynx normal Eyes General: appearance normal, both eyes and all related structures Neck Neck: Yes normal visual inspection, Yes no lymphadenopathy, Yes trachea midline and Yes no JVD Thyroid: Thyroid normal Chest Chest palpation & inspection: normal inspection of the chest, normal palpation of entire chest wall and no tenderness Resp Effort & Inspection: normal respiratory effort Auscultation: clear to auscultation bilaterally, no crackles, no rhonchi and no wheezes Percussion: percussion normal Cardio Palpation: normal PMI Rate: regular rate Rhythm: regular rhythm Heart sounds: no gallops and no murmurs GI Palpation (GI): Soft to palpation, nontender, No hepatosplenomegaly present and no masses Auscultation: normal bowel sounds Back/Spine/Pelvis Thoracic/Lumbar Spine: thoracic and lumbar spine normal to inspection Skin General skin exam: no rashes or lesions noted Neuro General: patient oriented x3 and no focal motor deficits Cranial nerves: Yes CN's II-XII intact bilaterally Extrem General: Yes normal to inspection, Yes no clubbing, cyanosis or edema and Yes no calf tenderness Psych Appearance: grossly normal and well kempt Mental Status: other (Slightly depressed these days, has he split with his girlfriend.) Speech and movement: Normal speech and movement present Assessment & Plan Assessment & Plan (1) VIBHA (obstructive sleep apnea): Comment: WITH HIS WEIGHT LOSS, HIS SLEEP APNEA HAD DDEFINITELY DECREASED IN SEVERITY. LAST SLEEP STUDY SHOWED TOTAL SLEEP TIME AHI 10.5, WHICH IS A MILD DEGREE OF VIBHA. IT IS MOSTLY POSITIONAL, IN SUPINE POSITION. TREATMENT: WEIGHT REDUCTION. AND POSITION THERAPY ( DO NOT SLEEP IN SUPINE POSITION, HE IS SLEEPING MOSTLY IN RIGHT LATERAL POSITION) HE HAS PUT ON SOME WEIGHT SINCE HIS LAST VISIT, BUT STILL DOES NOT HAVE ANY ACTIVE SYMPTOMS OF SLEEP APNEA. ENCOURAGED TO GO BACK TO DIET AND WALKING DAILY AND LOSE WEIGHT. Code(s): G47.33 - Obstructive sleep apnea (adult) (pediatric) (2) Asthma: Comment: CHRONIC INTERMITTENT BRONCHIAL ASTHMA, CURRENTLY SEEMS TO BE WELL CONTROLLED. TX ALBUTEROL HFA 2 PUFFS Q 4-6 HOURS ONLY P.R.N. FLOVENT -220 2 PUFFS BID ,, AND IF SYMPTOMS ARE UNDER CONTROL THEN HE MIGHT CUT IT DOWN TO 1 PUFF B.I.D.. Currently he is not using his Flovent because of the lewis issue. I told him to just use albuterol p.r.n.. But we will look into what alternative agent can be provided to him, which should be covered by insurance. Code(s): J45.909 - Unspecified asthma, uncomplicated Coding Level of Care Code Est Pt Level 3 (06107) Diagnoses VIBHA (obstructive sleep apnea) G47.33 Asthma J45.909
== END 2023-08-16 14:33 | disposition home or self-care (01) ==
PROVIDERS: PCP Internal Medicine; Visit Provider Internal Medicine
DX: G47.33 Obstructive sleep apnea (adult) (pediatric) (principal); J45.909 Unspecified asthma, uncomplicated
CPT/HCPCS: 99213

== ENCOUNTER → 2023-08-16 13:43 | Outpatient (BNVA) | payer BC, SELFPAY | PROVIDERS: PCP Internal Medicine; Visit Provider Internal Medicine ==

== ENCOUNTER 2024-03-11 15:12 | Outpatient (REF) | payer BC, SELFPAY ==
[2024-03-11 15:39] LABS: MANUAL DIFF FLAG NO
[2024-03-11 15:58] LABS: Basophils Absolute Auto 0.1 X10*3/uL (0.0-0.2); Basophils Percent Auto 0.9 % (0-2); Eosinophils Absolute Auto 0.1 X10*3/uL (0.0-0.4); Eosinophils Percent Auto 1.3 % (0-4); Hematocrit 48.1 % (42.0-52.0); Hemoglobin 16.4 g/dl (14.0-18.0); Imm Gran Abs Auto 0.09 X10*3/uL (0.00-0.03); Lymphocytes Absolute Auto 2.1 X10*3/uL (1.2-4.9); Lymphocytes Percent Auto 22.7 % (20-40); Mean Corpuscular HGB Conc 34.1 g/dl (31.0-36.0); Mean Corpuscular Volume 88.1 fL (80.0-98.0); Mean Platelet Volume 10.4 fL (9.4-12.4); Monocytes Absolute Auto 0.7 X10*3/uL (0.1-1.2); Monocytes Percent Auto 7.7 % (2-11); Neutrophils Absolute Auto 6.3 x10*3/uL (2.0-8.3); Neutrophils Percent Auto 66.4 % (45-73); Platelet Count 204 X10*3/uL (160-400); Red Blood Count 5.46 X10*6/uL (4.60-5.80); White Blood Count 9.4 X10*3/uL (4.8-10.8)
[2024-03-11 17:52] LABS: Estimated Average Glucose 275 mg/dL; Hemoglobin A1c % 11.2 % (<6.0)
[2024-03-11 18:39] LABS: Alanine Aminotransferase 14 U/L (0-40); Albumin Level 4.3 g/dL (3.5-5.0); Alkaline Phosphatase 69 U/L (39-117); Anion Gap 14 (12-20); Aspartate Amino Transferase 17 U/L (5-37); Bilirubin Total 0.8 mg/dL (0.0-1.0); Blood Urea Nitrogen 11 mg/dL (9-16); Calcium 9.8 mg/dL (8.4-10.2); Carbon Dioxide 26 mmol/L (22-29); Chloride 98 mmol/L (96-108); Estimated Glomerular Filt Rate > 60; Glucose Random 358 mg/dL (60-115); Potassium 3.8 mmol/L (3.3-5.1); Sodium 134 mmol/L (135-145); Total Protein 7.8 g/dL (6.5-8.0)
== END 2024-03-11 15:13 | disposition home or self-care (01) ==
LOC: HO.LAB 15:12
PROVIDERS: PCP Internal Medicine; Visit Provider Internal Medicine
DX: I10 Essential (primary) hypertension (principal); J45.909 Unspecified asthma, uncomplicated; E11.9 Type 2 diabetes mellitus without complications
CPT/HCPCS: 36415; 80053; 83036; 85025

== ENCOUNTER 2024-03-15 13:27 | Emergency (ER) | payer BC, SELFPAY ==
--- NOTE | ~2024-03-15 | XR_ITS ---
STUDY: Bilateral feet INDICATION: Diabetic, difficulty clipping nails. Bilateral foot pain with standing. COMPARISON: 01/27/2017 TECHNIQUE: 3 views each foot FINDINGS: Mild hallux valgus and hammertoe deformities. Achilles enthesopathy, right greater than left. No fracture, dislocation or focal soft tissue swelling. No erosive bony changes. Mild vascular calcifications. XR/XR foot LT min 3V IMPRESSION: No acute bony pathology.
--- NOTE | ~2024-03-15 | XR_ITS ---
STUDY: Bilateral feet INDICATION: Diabetic, difficulty clipping nails. Bilateral foot pain with standing. COMPARISON: 01/27/2017 TECHNIQUE: 3 views each foot FINDINGS: Mild hallux valgus and hammertoe deformities. Achilles enthesopathy, right greater than left. No fracture, dislocation or focal soft tissue swelling. No erosive bony changes. Mild vascular calcifications. XR/XR foot RT min 3V IMPRESSION: No acute bony pathology.
[2024-03-15 13:37] VITALS: BP 157/98; PULSE 100; RESP 19; TEMP 36.6; O2SAT 97
--- NOTE | 2024-03-15 13:37 | ED.GENADULT ---
HPI - General Adult General Chief complaint: Extremity Injury, Lower Stated complaint: L Foot Pain Chronic Time Seen by Provider: 03/15/24 13:47 Source: patient Mode of arrival: ambulatory Limitations: no limitations History of Present Illness HPI narrative: patient is a 53-year-old male who presents emergency department for evaluation bilateral heel pain and left 5th digit pain for the past 4-5 months , worsening over the past week without any precipitating injury. He does admit to a history of fracture to the left 5th digit approximately 5 years ago. He has been following a bottom brusher for evaluation of a callus to the lateral aspect of the left 4th digit. He attempted to follow-up with his bottom brusher regarding this pain but they referred him to his primary care doctor. He admits that the pain is worse when ambulating. He has not changed his footwear since this pain started. Does report a history of diabetes, by his account his sugars have been well controlled. He reports intermittent numbness and tingling sensation to the bilateral feet as well. He denies any redness, rashes, lesions, or open wounds. Related Data Home Medications ?Medication ?Instructions ?Recorded ?Confirmed atorvastatin 40 mg tablet 40 mg PO DAILY 02/18/21 08/16/23 furosemide 20 mg tablet 1 tab PO TID 02/18/21 08/16/23 losartan 50 mg tablet 1 tab PO DAILY 02/18/21 08/16/23 sitagliptin phosphate 100 mg 1 tab PO DAILY 02/18/21 08/16/23 tablet (Januvia) betamethasone valerate 0.1 % appl topical 12/08/21 08/16/23 topical cream albuterol sulfate 90 mcg/actuation 2 puff inhalation Q6H PRN 12/14/22 08/16/23 aerosol inhaler (Ventolin HFA) glipizide 5 mg tablet, extended 10 mg PO BID 08/16/23 08/16/23 release 24 hr Previous Rx's ?Medication ?Instructions ?Recorded fluticasone propionate 220 2 puff inhalation BID ASTHMA 30 12/14/22 mcg/actuation HFA aerosol inhaler days #12 grams (Flovent HFA) cyclobenzaprine 5 mg tablet 5 mg PO TID PRN muscle spasm 7 06/23/23 days #21 tabs naproxen 500 mg tablet 500 mg PO BID 7 days #14 tabs 06/23/23 diclofenac sodium 1 % topical gel 2 g topical QID #100 grams 03/15/24 (Voltaren Arthritis Pain) Allergies Allergy/AdvReac Type Severity Reaction Status Date / Time No Known Allergies Allergy Unknown NO KNOWN Verified 03/15/24 13:39 ALLERGIES Review of Systems Review of Systems: Yes all other systems are reviewed and are negative REPLACED BY [facility] Past Medical History Medical History VIBHA on CPAP Asthma Costochondritis Diabetes HTN (hypertension) Asthma COPD (chronic obstructive pulmonary disease) Surgical History Hx of oral surgery Hx of cardiac catheterization Social History Social History Patient Tobacco Use Status: Former Tobacco user Cigarette Packs Per Day: 1 Cigarettes Per Day: 20 Advance Directives: No Advance Directives Information Provided: Yes Physical Exam ED Vital Signs: Vital Signs - 24 hr 03/15/24 13:37 Temperature 98 F Pulse Rate 100 Respiratory Rate 19 Blood Pressure 157/98 H Pulse Oximetry 97 Oxygen Delivery Method Room Air BMI result Body Mass Index 30.0 Appearance: Alert.?Oriented to person, place and time. No acute distress.?Normal affect. Eyes: Pupils equal, round and reactive to light.? ENT: Pharynx normal.?? Neck: Normal inspection.? Neck supple.?? CVS: Heart sounds normal. Normal heart rate and rhythm.? Pulses normal.?? Respiratory: No respiratory distress.? Lung sounds clear to auscultation bilaterally?? Abdomen: Soft and non-tender. Normoactive bowel sounds. Skin: Skin warm and dry.? Normal skin color.? Extremities: No lower extremity edema.? No calf ttp. Bilateral mild stasis dermatitis surrounding the dorsal aspect bilateral feet and heels, 2+ DP/PT pulse bilaterally, no open lesions sores or wounds, Neuro: Moves all extremities spontaneously. Sensation intact bilaterally. Ambulates with normal steady gait. Course Course Course Narrative: This is an RME: Additional HPI, ROS, PE not included below will be deferred to primary provider. 53 yo male with left toe pain X 5 months. Broke this toe 5 years ago. Denies fevers, chills, cp, shortness of breath. Medical Decision Making Medical Decision Making [facility] Narrative: patient is a 53-year-old male with reported past medical history of Right bundle-branch block, PVCs, type 2 diabetes, COPD presenting to emergency department for evaluation of bilateral foot pain as per HPI. Without obvious precipitating injury. On exam he does have evidence of mild stasis dermatitis surrounding the dorsal aspect bilateral feet and heels, 2+ DP/PT pulse bilaterally, no open lesions sores or wounds. Wells negative, unlikely bilateral DVT, defer ultrasound imaging at this time. XR bilateral feet reveals no evidence of acute osseous abnormality he does have Achilles enthesopathy on the right greater than the left, pain may be secondary to tendonitis. recommend treatment with oral NSAID, Voltaren gel, outpatient follow-up with primary care provider who may consider physical therapy for further management. Patient made aware of plan of care and is agreeable. At this time feel he is stable for discharge home. Differential Diagnosis Differential Diagnoses: The differential diagnosis associated with the presentation includes ( venous insufficiency, diabetic neuropathy, plantar fasciitis, heel spur. Suspect less likely bilateral DVT, acute fracture) Independent Interpretation I performed an independent interpretation of an: Plain X-Ray ( No acute fractures) Radiology Impression Discussion of test interpretation with radiology: I have reviewed the radiologist's reading. Radiologist Impression: XR/XR foot LT min 3V IMPRESSION: No acute bony pathology. XR/XR foot RT min 3V IMPRESSION: No acute bony pathology. Tests considered The following testing was considered but not selected: See narrative above Prescription Management I considered prescription management with: Pain Medication Discharge Plan Discharge Clinical Impression: Achilles tendinosis of both lower extremities Patient Disposition: Home, Self-Care Instructions: Achilles Tendinitis (ED) Additional Instructions: You can take ibuprofen 200 mg, 3 tablets (600mg) every 6-8 hours as needed for pain, in addition to Tylenol 500 mg, 2 tablets (1,000mg) every 4-6 hours as needed for pain, but not to exceed 3 doses daily (3,000mg).? Apply topical pain gel as prescribed. Contact your primary care provider to discuss further outpatient management, they may consider a course of physical therapy given the duration of your symptoms. Prescriptions: New diclofenac sodium [Voltaren Arthritis Pain] 1 % gel 2 g topical QID Qty: 100 0RF Rx Instructions: apply to Bilateral heels No Action losartan 50 mg tablet 1 tab PO DAILY atorvastatin 40 mg tablet 40 mg PO DAILY furosemide 20 mg tablet 1 tab PO TID Januvia 100 mg tablet 1 tab PO DAILY glipizide 5 mg tablet extended release 24hr 10 mg PO BID cyclobenzaprine 5 mg tablet 5 mg PO TID PRN (Reason: muscle spasm) 7 Days Qty: 21 0RF naproxen 500 mg tablet 500 mg PO BID 7 Days Qty: 14 0RF betamethasone valerate 0.1 % cream topical albuterol sulfate [Ventolin HFA] 90 mcg/actuation HFA aerosol inhaler 2 puff inhalation Q6H PRN Flovent HFA 220 mcg/actuation HFA aerosol inhaler 2 puff inhalation BID 30 Days Qty: 12 5RF Referrals: Serge Wiley MD [Primary Care Provider] - Print Language: Kiswahili
[2024-03-15 16:06] VITALS: BP 138/78; PULSE 88; RESP 18; TEMP 36.6; O2SAT 97
[2024-03-15 16:13] VITALS: BP 138/78; PULSE 88; RESP 18; TEMP 36.6; O2SAT 97
== END 2024-03-15 16:13 | disposition home or self-care (01) ==
PROVIDERS: Emergency Provider Emergency Medicine; PCP Internal Medicine
DX: M76.62 Achilles tendinitis, left leg (principal); M76.61 Achilles tendinitis, right leg; E11.9 Type 2 diabetes mellitus without complications; I10 Essential (primary) hypertension
CPT/HCPCS: 73630; 99283; 99284

== ENCOUNTER 2024-05-29 11:54 | Outpatient (REF) | payer BC, SELFPAY ==
[2024-05-29 12:51] LABS: Estimated Average Glucose 260 mg/dL; Hemoglobin A1c % 10.7 % (<6.0)
[2024-05-29 12:52] LABS: Anion Gap 14 (12-20); Blood Urea Nitrogen 8 mg/dL (9-16); Calcium 10.1 mg/dL (8.4-10.2); Carbon Dioxide 29 mmol/L (22-29); Chloride 99 mmol/L (96-108); Estimated Glomerular Filt Rate > 60; Glucose Random 305 mg/dL (60-115); Magnesium 1.9 mg/dL (1.6-2.6); Potassium 3.8 mmol/L (3.3-5.1); Sodium 138 mmol/L (135-145)
[2024-05-29 13:01] LABS: B Type Natriuretic Peptide < 10 pg/mL (<100)
== END 2024-05-29 11:55 | disposition home or self-care (01) ==
LOC: HO.10HDL 11:54
PROVIDERS: Visit Provider Internal Medicine
DX: J45.909 Unspecified asthma, uncomplicated (principal); I10 Essential (primary) hypertension; R60.9 Edema, unspecified; E11.9 Type 2 diabetes mellitus without complications
CPT/HCPCS: 36415; 80048; 83036; 83735; 83880

== ENCOUNTER → 2024-07-24 14:46 | Outpatient (REF) | payer BC, SELFPAY ==
--- NOTE | 2024-07-24 14:50 | CA_ITS ---
Transthoracic Echocardiogram Patient (Last, First, Middle): Lauren Calix Marycruz Low Gender: Male Date of : 1970 Age: 53 Procedure Date: 07/24/2024 Procedure Type: Transthoracic Echocardiogram Location: OP Height: 195.58 cm Weight: 111.59 kg BSA: 2.44 m2 Heart Rate: 77 bpm BP: 112 / 68 mmHg Handbag Framer: [email or web address] Referring MD: Serge Wiley MD Symptoms: HTN I10 ,EDEMA, UNSPECIFIE. ASTHMA Study Quality: Technically Difficult w/Contrast Conclusions: - 1. Normal LV ejection fraction of 60 65% with impaired relaxation filling pattern 2. Poorly visualized cardiac valves with normal cardiac valvular Doppler 3. Normal measured RV systolic pressure Findings Procedure Information Contrast agent, definity, is being given per protocol without apparent complications. Left Ventricle Normal left ventricular size, thickness, and systolic function. The visually estimated ejection fraction is between 60-65%. Spectral Doppler is indicative of an impaired relaxation filling pattern. E/E prime ratio is between 8 and 15 consistent with indeterminate filling pressures. Right Ventricle The right ventricle was not well visualized. Atria The left atrium is normal in size. There is lipomatous hypertrophy of the interatrial septum. There is no evidence of interatrial shunt. The right atrium was not well visualized. Aortic Valve The aortic valve was not well visualized. There is no aortic valve stenosis. There is no aortic valve regurgitation. Mitral Valve The mitral valve was not well visualized. There is trace mitral valve regurgitation. There is no mitral valve stenosis. Pulmonic Valve The pulmonic valve was not well visualized. Tricuspid Valve The tricuspid valve was not well visualized. There is trace tricuspid valve regurgitation. The right ventricular systolic pressure is 11 mmHg. Normal right atrial pressure. Great Vessels The aorta was not well visualized. The pulmonary artery was not well visualized. There is no dilatation of the ascending aorta measuring 3.40 cm. Venous The inferior vena cava is normal in size and collapses greater than 50% with inspiration. Pericardium/Pleural The pericardium was not well visualized. Prior Study Comparison No prior study available for comparison. Measurements 2D Linear Measurements IVSd: 1.02 0.6-0.9/0.6-1.0 cm LVIDd: 4.83 3.9-5.3/4.2-5.9 cm LVIDd Index: 1.98 2.4-3.2/2.2-3.1 cm/m2 LVIDs: 3.48 2.0-3.6 cm LVPWd: 0.99 0.7-1.1 cm LA Diam: 3.40 2.7-3.8/3.0-4.0 cm LAIDs Index: 1.39 1.5-2.3 cm/m2 LV Mass: 215.63 67-162/88-224 g LV Mass Index: 88.37 43-95/49-115 g/m2 LVOT Diam: 2.00 3.0+(-)1.3 cm 2D Systolic Function EF 4C: 59.90 >55% EF 2C: 61.20 >55% EF BiP: 61.50 >55% Mitral Valve MV Pk E: 0.64 MV PK A: 0.68 MV Decel Time: 334.00 E/A: 0.90 E'Lateral: 10.10 E'Medial: 7.29 E/E' Med: 8.80 E/E' Lat: 6.40 PHT: 98.00 MVA PHT: 2.24 Decel [place]: 1.92 Aortic Valve AoV Pk Matias: 1.60 AoV Mn Matias: 1.18 AoV VTI: 0.33 AoV Pk Grad: 10.00 Aov Mn Grad: 6.00 JANAY Cont.VTI: 2.56 LVOT LVOT Pk Matias: 1.43 LVOT Mn Matias: 0.97 LVOT VTI: 0.27 LVOT Pk Grad: 8.00 LVOT Mn Grad: 4.00 LVOT Diam: 2.00 LVOT Area: 3.14 Diastolic Function MV Pk E: 0.64 MV Pk A: 0.68 E/A: 0.90 E'Medial: 7.29 E/E' Med: 8.80 E' Laterial: 10.10 E/E' Lat: 6.40 Right Ventricle TAPSE (mm): 23.40 TVS' Matias: 13.30 Tricuspid Valve TR Pk Matias: 1.43 TR Pk Grad: 8.00 RA Press: 3.00 RVSP: 11.00 Great Vessels Aorta Sinus of Valsalva: 3.83 2.0-3.5 cm Ao Asc: 3.40 2.1-3.4 cm Updated in Other Vendor System with Status of Final Jose Richards MD electronically signed on 07/25/2024 10:54:44 AM with status of Final
== END ==
LOC: HO.CARD 14:46
PROVIDERS: PCP Internal Medicine; Visit Provider Internal Medicine
DX: I10 Essential (primary) hypertension (principal); I60.9 Nontraumatic subarachnoid hemorrhage, unspecified; J45.31 Mild persistent asthma with (acute) exacerbation
CPT/HCPCS: 93306; Q9957

== ENCOUNTER → 2024-07-24 14:50 | Outpatient (BNV) | payer BC, SELFPAY | PROVIDERS: PCP Internal Medicine; Visit Provider Internal Medicine Cardiovascular Disease | DX: I51.89 Other ill-defined heart diseases (principal); I10 Essential (primary) hypertension | CPT/HCPCS: 93306 ==

== ENCOUNTER 2024-08-23 15:42 | Emergency (ER) | payer BC, SELFPAY ==
--- NOTE | ~2024-08-23 | XR_ITS ---
EXAMINATION: XR CHEST CLINICAL INFORMATION: Chest tightness/shortness of breath COMPARISON: Chest 03/01/2023 TECHNIQUE: 2 views of the chest were obtained. FINDINGS: Lungs are hyperinflated but clear of acute process. The heart size and pulmonary vascularity is normal. No gross bony abnormality seen. XR/XR chest 2V IMPRESSION: Unremarkable chest examination. Electronically signed by: Rudi Weaver MD 08/23/2024 07:42 PM EDT
[2024-08-23 15:46] VITALS: BP 136/97; PULSE 111; RESP 22; TEMP 36.5; O2SAT 95; BMI 27.0
--- NOTE | 2024-08-23 15:47 | ED_ITS ---
HPI - URI/Sore Throat General Chief Complaint: Dyspnea Stated Complaint: Coughing, fever, runny nose, sob Time Seen by Provider: 08/23/24 21:52 Source: patient Mode of arrival: ambulatory Limitations: no limitations History of Present Illness ED Provider: Dr. Gilliland HPI Narrative: Patient is a 54yo male with COPD, active smoker, noncompliant diabetic, who presents with cough, wheezing and chest tightness for the past week. He has missed work for the past few days. Related Data Home Medications ?Medication ?Instructions ?Recorded ?Confirmed atorvastatin 40 mg tablet 40 mg PO DAILY 02/18/21 08/16/23 furosemide 20 mg tablet 1 tab PO TID 02/18/21 08/16/23 losartan 50 mg tablet 1 tab PO DAILY 02/18/21 08/16/23 sitagliptin phosphate 100 mg 1 tab PO DAILY 02/18/21 08/16/23 tablet (Januvia) betamethasone valerate 0.1 % appl topical 12/08/21 08/16/23 topical cream albuterol sulfate 90 mcg/actuation 2 puff inhalation Q6H PRN 12/14/22 08/16/23 aerosol inhaler (Ventolin HFA) glipizide 5 mg tablet, extended 10 mg PO BID 08/16/23 08/16/23 release 24 hr Previous Rx's ?Medication ?Instructions ?Recorded fluticasone propionate 220 2 puff inhalation BID ASTHMA 30 12/14/22 mcg/actuation HFA aerosol inhaler days #12 grams (Flovent HFA) cyclobenzaprine 5 mg tablet 5 mg PO TID PRN muscle spasm 7 06/23/23 days #21 tabs naproxen 500 mg tablet 500 mg PO BID 7 days #14 tabs 06/23/23 diclofenac sodium 1 % topical gel 2 g topical QID #100 grams 03/15/24 (Voltaren Arthritis Pain) albuterol sulfate 90 mcg/actuation 2 puff inhalation Q4-6H PRN 08/23/24 aerosol inhaler shortness of breath or wheezing #8.5 grams prednisone 20 mg tablet 60 mg (3 x 20 mg) PO DAILY #12 tabs 08/23/24 Allergies Allergy/AdvReac Type Severity Reaction Status Date / Time No Known Allergies Allergy Unknown NO KNOWN Verified 08/23/24 15:50 ALLERGIES Review of Systems 2 Review of Systems: Yes all other systems are reviewed and are negative Neurologic: Denies Sensory deficit (Neuro) [facility] Past Medical History Medical History VIBHA on CPAP Asthma Costochondritis Diabetes HTN (hypertension) Asthma COPD (chronic obstructive pulmonary disease) Surgical History Hx of oral surgery Hx of cardiac catheterization Social History Social History Alcohol intake: current Alcohol intake frequency: holidays/special occasions only Patient Tobacco Use Status: Former Tobacco user Cigarette Packs Per Day: 1 Cigarettes Per Day: 20 Advance Directives: No Advance Directives Information Provided: No Do you have a plan to hurt others: No Plan Physical Exam 2 Vital Signs: Vital Signs: Last Vital Signs Temp 98.2 F 08/23/24 21:44 Pulse 102 H 08/23/24 22:22 Resp 18 08/23/24 22:22 BP 146/94 H 08/23/24 21:44 Pulse Ox 95 08/23/24 21:44 O2 Del Method Room Air 08/23/24 15:46 BMI result Body Mass Index 27.0 Const: Other: male looking older than stated age, coughing Nutritional Appearance: average body habitus Orientation/consciousness: oriented to person and patient oriented x3 Limitations: no limitations HEENT: Head: Yes normal to inspection Ears: external ears normal General nose exam: Normal external nose present Mouth: Normal oral and palatal mucosa present and oropharynx normal Throat: Yes posterior oropharynx normal Eyes: General: appearance normal, both eyes and all related structures Neck: Other: supple Neck: Yes normal visual inspection Chest: Chest palpation & inspection: normal inspection of the chest Resp: Other: diffuse wheezing bilaterally Cardio: Jugular venous distension: no JVD Rate: regular rate Rhythm: r egular rhythm Heart sounds: S1 normal heart sound present and S2 normal heart sound present GI: Inspection: Yes normal to inspection Palpation (GI): Soft to palpation, nontender and No hepatosplenomegaly present Auscultation: normal bowel sounds : General: Yes no CVA tenderness Back/Spine/Pelvis: Back: no CVA tenderness Skin: General skin exam: no rashes or lesions noted Neuro: General: oriented to person and patient oriented x3 Cranial nerves: Yes CN's II-XII intact bilaterally Motor exam (neuro): 5/5 motor strength present throughout Sensory Exam: No Sensory deficit (Neuro) Extrem: General: Yes normal to inspection Psych: Appearance: grossly normal Course Course Course Narrative: This is a Rapid Medical Exam performed in triage by Sandra Lo PA-C. Full HPI, ROS and PE to be performed by primary ED provider. 54 yo M with a PMH of COPD presenting to the ED c/o productive cough and congestion x4 days. Worsens with lying flat on back. Endorses wheeze, fever, chills, chest tightness, lightheadedness, tingling in right hand. Currently smoking. Ran out of inhalers last week. PE: diminshed lung sounds throughout, bibasilar wheezes throughout, dry cough Plan: labs, CXR, viral testing, EKG, bronch protocol Reevaluation(s) Reevaluation #1: Patient with elevated glucose, normal CXR, negative viral panel, diffuse wheezing on lung exam, will treat him for COPD and discharge to home Time: 22:46 Medications Administered Discontinued Medications Generic Name Dose Route Start Last Admin Trade Name Freq PRN Reason Stop Dose Admin Albuterol Sulfate 2.5 mg/ 5 mg 08/23/24 22:01 08/23/24 22:21 Albuterol Sulfate 2.5 mg INHALE 08/23/24 22:02 5 mg ONCE ONE Administration Albuterol Sulfate 2.5 mg/ 0 mg 08/23/24 16:20 08/23/24 16:30 Albuterol/Ipratropium 3 ml INHALE 08/23/24 16:21 1 dose ONCE ONE Administration Insulin Human Lispro 10 unit 08/23/24 21:54 08/23/24 22:05 Insulin Lispro 100 Unit/Ml 3 Ml Vial SUBCUT 08/23/24 21:55 10 unit ONCE ONE Administration Prednisone 60 mg 08/23/24 22:01 08/23/24 22:05 Prednisone 20 Mg Tablet PO 08/23/24 22:02 60 mg ONCE ONE Administration Medical Decision Making Differential Diagnosis Differential Diagnoses: The differential diagnosis associated with the presentation includes (Pneumonia, Covid, flu, RSV, COPD exacerbation, hyperglycemia) Admission/Observation Consideration of admission/observation: Escalation of care including admission/observation considered (upon arrival admission was considered) Lab Data 08/23/24 16:14 08/23/24 16:14 Labs: Lab Results 08/23/24 Range/Units 16:14 WBC 7.5 (4.8-10.8) X10*3/uL RBC 5.44 (4.60-5.80) X10*6/uL Hgb 16.7 (14.0-18.0) g/dl Hct 47.5 (42.0-52.0) % MCV 87.3 (80.0-98.0) fL MCH 30.7 (27.0-33.0) pg MCHC 35.2 (31.0-36.0) g/dl RDW 13.5 (11.0-16.0) % Plt Count 178 (160-400) X10*3/uL MPV 10.2 (9.4-12.4) fL Immature Gran % (Auto) 0.5 H (0.0-0.4) % Neut % (Auto) 54.8 (45-73) % Lymph % (Auto) 33.0 (20-40) % [place] % (Auto) 9.3 (2-11) % Eos % (Auto) 1.7 (0-4) % Baso % (Auto) 0.7 (0-2) % Lymph # (Auto) 2.5 (1.2-4.9) X10*3/uL [place] # (Auto) 0.7 (0.1-1.2) X10*3/uL Eos # (Auto) 0.1 (0.0-0.4) X10*3/uL Baso # (Auto) 0.1 (0.0-0.2) X10*3/uL Abs Immat Gran (auto) 0.04 H (0.00-0.03) X10*3/uL Absolute Neuts (auto) 4.1 (2.0-8.3) x10*3/uL Absolute Nucleated RBC 0.000 (0.0-0.012) X10*3/uL Nucleated RBC % (auto) 0.0 (0.0-0.2) /100WBC Sodium 134 L (135-145) mmol/L Potassium 4.0 (3.3-5.1) mmol/L Chloride 97 (96-108) mmol/L Carbon Dioxide 27 (22-29) mmol/L Anion Gap 14 (12-20) BUN 13 (9-16) mg/dL Creatinine 0.93 (0.5-1.4) mg/dL Estim Creat Clear Calc 114.4 Estimated GFR > 60 Random Glucose 350 H* (60-115) mg/dL Calcium 10.5 H (8.4-10.2) mg/dL Magnesium 1.7 (1.6-2.6) mg/dL Total Bilirubin 1.3 H (0.0-1.0) mg/dL Direct Bilirubin 0.5 (0.0-0.5) mg/dL AST 18 (5-37) U/L ALT 23 (0-40) U/L Alkaline Phosphatase 75 (39-117) U/L Troponin I High Sens < 2.7 (<3.5-35.0) ng/L Total Protein 8.1 H (6.5-8.0) g/dL Albumin 4.7 (3.5-5.0) g/dL Influenza Type A (PCR) NEGATIVE (Negative) Influenza Type B (PCR) NEGATIVE (Negative) RSV RNA Qual (PCR) NEGATIVE (Negative) SARS-CoV-2 RNA (RT-PCR) NEGATIVE (Negative) Independent Interpretation I performed an independent interpretation of an: Plain X-Ray (CXR: old interstitial changes) Independent Historian Clinical information obtained from an independent historian. History obtained from or confirmed by: Other (son) Prescription Management I considered prescription management with: Antibiotic (no pneumonia seen) Chronic Conditions Patient?s care impacted by: Diabetes Discharge Plan Discharge Clinical Impression: COPD exacerbation, Hyperglycemia Patient Disposition: Home, Self-Care Instructions: COPD (Chronic Obstructive Pulmonary Disease) (ED), Diabetic Hyperglycemia (ED) Prescriptions: New prednisone 20 mg tablet 60 mg PO DAILY Qty: 12 0RF albuterol sulfate 90 mcg/actuation HFA aerosol inhaler 2 puff inhalation Q4-6H PRN (Reason: shortness of breath or wheezing) Qty: 8.5 0RF No Action losartan 50 mg tablet 1 tab PO DAILY atorvastatin 40 mg tablet 40 mg PO DAILY furosemide 20 mg tablet 1 tab PO TID Januvia 100 mg tablet 1 tab PO DAILY glipizide 5 mg tablet extended release 24hr 10 mg PO BID cyclobenzaprine 5 mg tablet 5 mg PO TID PRN (Reason: muscle spasm) 7 Days Qty: 21 0RF naproxen 500 mg tablet 500 mg PO BID 7 Days Qty: 14 0RF diclofenac sodium [Voltaren Arthritis Pain] 1 % gel 2 g topical QID Qty: 100 0RF Rx Instructions: apply to Bilateral heels betamethasone valerate 0.1 % cream topical albuterol sulfate [Ventolin HFA] 90 mcg/actuation HFA aerosol inhaler 2 puff inhalation Q6H PRN Flovent HFA 220 mcg/actuation HFA aerosol inhaler 2 puff inhalation BID 30 Days Qty: 12 5RF Referrals: Serge Wilye MD [Primary Care Provider] - 3 days Print Language: Kiswahili
--- NOTE | 2024-08-23 15:52 | ECG_ITS ---
Test Reason : chest tightness, sob Blood Pressure : / mmHG Vent. Rate : 110 BPM Atrial Rate : 110 BPM P-R Int : 138 ms QRS Dur : 130 ms QT Int : 392 ms P-R-T Axes : 084 106 048 degrees QTc Int : 530 ms Sinus tachycardia Right bundle branch block Abnormal ECG When compared with ECG of 06-DEC-2007 17:22, Right bundle branch block is now Present Heart rate has increased Referred By: Sandra Lo Electronically Signed By:JOSE SMITH
[2024-08-23 16:20] VITALS: PULSE 111; RESP 22; O2SAT 96
[2024-08-23 16:21] LABS: MANUAL DIFF FLAG NO
[2024-08-23] MEDS: Albuterol Sulfate 2.5 MG, Albuterol/Iprat 2.5/0.5MG 3 ML 3 ML INHALE (16:30)
[2024-08-23 16:49] LABS: Basophils Absolute Auto 0.1 X10*3/uL (0.0-0.2); Basophils Percent Auto 0.7 % (0-2); Eosinophils Absolute Auto 0.1 X10*3/uL (0.0-0.4); Eosinophils Percent Auto 1.7 % (0-4); Hematocrit 47.5 % (42.0-52.0); Hemoglobin 16.7 g/dl (14.0-18.0); Imm Gran Abs Auto 0.04 X10*3/uL (0.00-0.03); Imm Gran Pct Auto 0.5 % (0.0-0.4); Lymphocytes Absolute Auto 2.5 X10*3/uL (1.2-4.9); Mean Corpuscular HGB Conc 35.2 g/dl (31.0-36.0); Mean Corpuscular Hemoglobin 30.7 pg (27.0-33.0); Mean Corpuscular Volume 87.3 fL (80.0-98.0); Mean Platelet Volume 10.2 fL (9.4-12.4); Monocytes Absolute Auto 0.7 X10*3/uL (0.1-1.2); Monocytes Percent Auto 9.3 % (2-11); Neutrophils Absolute Auto 4.1 x10*3/uL (2.0-8.3); Neutrophils Percent Auto 54.8 % (45-73); Platelet Count 178 X10*3/uL (160-400); Red Blood Count 5.44 X10*6/uL (4.60-5.80); Red Cell Distribution Width 13.5 % (11.0-16.0); White Blood Count 7.5 X10*3/uL (4.8-10.8)
[2024-08-23 16:53] LABS: Alanine Aminotransferase 23 U/L (0-40); Albumin Level 4.7 g/dL (3.5-5.0); Alkaline Phosphatase 75 U/L (39-117); Anion Gap 14 (12-20); Aspartate Amino Transferase 18 U/L (5-37); Bilirubin Direct 0.5 mg/dL (0.0-0.5); Bilirubin Total 1.3 mg/dL (0.0-1.0); Blood Urea Nitrogen 13 mg/dL (9-16); Calcium 10.5 mg/dL (8.4-10.2); Carbon Dioxide 27 mmol/L (22-29); Chloride 97 mmol/L (96-108); Creatinine Clr Calc Pharmacy 114.4; Estimated Glomerular Filt Rate > 60; Glucose Random 350 mg/dL (60-115); Magnesium 1.7 mg/dL (1.6-2.6); Sodium 134 mmol/L (135-145); Total Protein 8.1 g/dL (6.5-8.0)
[2024-08-23 16:57] LABS: Troponin-I High Sensitivity < 2.7 ng/L (<3.5-35.0)
[2024-08-23 17:06] LABS: Influenza A PCR NEGATIVE (Negative); Influenza B PCR NEGATIVE (Negative); Resp Syncy Virus RNA Qual PCR NEGATIVE (Negative); SARS COV2 PCR INHOUSE NEGATIVE (Negative)
[2024-08-23 21:44] VITALS: BP 146/94; PULSE 102; RESP 12; TEMP 36.8; O2SAT 95
[2024-08-23] MEDS: Insulin Lispro 100 UNIT/ML 3 ML VIAL 10 UNIT SUBCUT (22:05)
[2024-08-23] MEDS: predniSONE 20 MG TABLET 60 MG PO (22:05)
[2024-08-23] MEDS: Albuterol Sulfate 2.5 MG, Albuterol Sulfate (0.083%) 2.5 MG 5 MG INHALE (22:21)
[2024-08-23 22:22] VITALS: PULSE 102; RESP 18; O2SAT 96
[2024-08-23 23:14] VITALS: BP 112/79; PULSE 103; RESP 15; TEMP 36.7; O2SAT 96
[2024-08-23 23:22] VITALS: BP 112/79; PULSE 103; RESP 15; TEMP 36.7; O2SAT 96
== END 2024-08-23 23:22 | disposition home or self-care (01) ==
PROVIDERS: Physician Assistant; Emergency Provider Emergency Medicine; PCP Internal Medicine
DX: J44.1 Chronic obstructive pulmonary disease with (acute) exacerbation (principal); E11.65 Type 2 diabetes mellitus with hyperglycemia; Z03.818 Encounter for observation for suspected exposure to other biological agents ruled out; R05.9 Cough, unspecified; I10 Essential (primary) hypertension; Z87.891 Personal history of nicotine dependence; Z79.02 Long term (current) use of antithrombotics/antiplatelets; Z79.899 Other long term (current) drug therapy
CPT/HCPCS: 0241U; 36415; 71046; 80048; 80076; 83735; 84484; 85025; 87040; 93005; 94640; 94664; 99284

== ENCOUNTER 2025-04-09 16:20 | Outpatient (AMB) | payer BC, SELFPAY ==
--- NOTE | 2025-04-09 16:29 | A.OFFPC_ITS ---
Vital Signs 04/09/25 16:31 Height 6 ft 5 in Weight 107.048 kg BMI 28.0 BP 170/98 H Respiration 18 Pulse 96 Temp 97.9 F Temp Source Temporal Artery Scan Pulse Oximetry (%) 96 Oxygen Delivery Method Room Air Intake Visit Reasons: Routine General Office Dispatcher Required: No Accompanied by: Self / Same As Patient Allergies No Known Allergies Allergy (Unknown, Verified 04/09/25 16:32) NO KNOWN ALLERGIES HPI HPI Comments History of Present Illness Details 54-year-old male with history of non-ins ulin-dependent type 2 diabetes, hypertension, asthma/COPD overlap syndrome presents to the office today for routine follow-up and to establish care. He has been compliant with his medications. He is following with endocrinology at [facility]. He is not checking his glucose levels. Last hemoglobin A1c was 10.7%. He is taking Trulicity which he feels is giving adverse side effects including gas, bloating, and upset stomach. He reports that he does no want to eat as far as healthy foods but is not eating much. He does continue smoking and reports he has tried quitting in the past. He was successful on Wellbutrin but did not like the way this made him feel. He reports that he had an episode where he was having difficulty swallowing and was coughing up blood. He does report he had an MRI of the neck performed but I do not see this on file. He is questioning about the results. Blood pressure is quite elevated today initially 170/98 and on recheck 148/88. [facility], [facility] Medical History VIBHA on CPAP Asthma Costochondritis Diabetes HTN (hypertension) Asthma COPD (chronic obstructive pulmonary disease) Surgical History Hx of oral surgery Hx of cardiac catheterization Social History Alcohol intake: current Alcohol intake frequency: holidays/special occasions only Patient Tobacco Use Status: Former Tobacco user Cigarette Packs Per Day: 1 Cigarettes Per Day: 20 Review of Systems Const All systems reviewed & are unremarkable except as noted in HPI and below Physical exam (Primary Care) Vital Signs: Last Vital Signs Temp 97.9 F 04/09/25 16:31 Pulse 96 04/09/25 16:31 Resp 18 04/09/25 16:31 BP 170/98 H 04/09/25 16:31 Pulse Ox 96 04/09/25 16:31 Oxygen Delivery Method Room Air 04/09/25 16:31 BMI result Body Mass Index 28.0 Tobacco/Smoking Status: Tobacco use Status Patient Tobacco Use Status Former Tobacco user 04/09/25 16:30 Const Other: Constitutional - Awake and Alert, No apparent distress Eyes - PERRLA, EOMI Cardiovascular - S1S2, RRR, No edema Respiratory - Normal lung expansion, Normal respiratory effort, No respiratory distress, CTA bilaterally Extremities - no calf tenderness bilaterally, no swelling Skin - Warm/Dry Neurological - Alert & oriented x3 Psychological - Appropriate affect Coding Level of Care Code New Pt Level 4 (21813) Complex EM visit Add On G2211 Diagnoses Diabetes E11.9 HTN (hypertension) I10 COPD (chronic obstructive pulmonary disease) J44.9 Cigarette smoker F17.210 Assessment & Plan Assessment & Plan (1) Diabetes: Comment: NIDDM Code(s): E11.9 - Type 2 diabetes mellitus without complications Category: Medical Plan: Ifq-[id number]-fxcjrxqaf type 2 diabetes. Uncontrolled with last hemoglobin A1c 10.7%. Updated hemoglobin A1c ordered. Will also check microalbumin urine. Continue with diabetic eye exams. We will continue Trulicity 4.5 mg weekly for now. He can continue following with endocrinology for further adjustments. Recommend improving diabetic diet. (2) HTN (hypertension): Code(s): I10 - Essential (primary) hypertension Category: Medical Plan: Uncontrolled with repeat blood pressure 146/88. Increase losartan to 75 mg daily. Low-sodium diet. He does have upcoming appointment at Endocrinology were blood pressure can be re-evaluated. Should blood pressure remain elevated, contact the office for further adjustment. We will assess renal function and electrolyte levels as well. (3) COPD (chronic obstructive pulmonary disease): Code(s): J44.9 - Chronic obstructive pulmonary disease, unspecified Category: Medical Plan: Stable. Use albuterol inhaler only as needed for shortness of breath and wheezing. Smoking cessation strongly advised. (4) Cigarette smoker: Code(s): F17.210 - Nicotine dependence, cigarettes, uncomplicated Category: Medical Plan: Smoking cessation advised. He is not interested in nicotine replacement therapy or other medications. Did mention hip doses as possible solution. He will consider this in the future. Plan Follow-up in 4 months. Continue following with endocrinology. Labs ordered to be completed today. Orders: Orders Hemoglobin A1c Today E11.9 - Type 2 diabetes mellitus without complications, I10 - Essential (primary) hypertension, J44.9 - Chronic obstructive pulmonary disease, unspecified Liver Panel Today E11.9 - Type 2 diabetes mellitus without complications, I10 - Essential (primary) hypertension, J44.9 - Chronic obstructive pulmonary disease, unspecified TSH reflex Free T4 Today E11.9 - Type 2 diabetes mellitus without complications, I10 - Essential (primary) hypertension, J44.9 - Chronic obstructive pulmonary disease, unspecified Basic Metabolic Panel Today E11.9 - Type 2 diabetes mellitus without complications, I10 - Essential (primary) hypertension, J44.9 - Chronic obstructive pulmonary disease, unspecified Complete Blood Count Auto Diff Today E11.9 - Type 2 diabetes mellitus without complications, I10 - Essential (primary) hypertension, J44.9 - Chronic obstructive pulmonary disease, unspecified Lipid Panel Today E11.9 - Type 2 diabetes mellitus without complications, I10 - Essential (primary) hypertension, J44.9 - Chronic obstructive pulmonary disease, unspecified Microalbumin, Random (w Creat) Today E11.9 - Type 2 diabetes mellitus without complications Medications: Refilled diclofenac sodium 1% (Voltaren Arthritis Pain) apply to Bilateral heels 2 grams topical QID 100 grams 0RF
[2025-04-09 16:31] VITALS: BP 170/98; PULSE 96; RESP 18; TEMP 36.6; O2SAT 96; BMI 28.0
== END 2025-04-09 16:57 | disposition home or self-care (01) ==
LOC: HO.HMCHD 16:20
PROVIDERS: PCP Internal Medicine; Visit Provider Physician Assistant
DX: E11.9 Type 2 diabetes mellitus without complications (principal); I10 Essential (primary) hypertension; J44.9 Chronic obstructive pulmonary disease, unspecified; F17.210 Nicotine dependence, cigarettes, uncomplicated

== ENCOUNTER → 2025-04-09 16:20 | Outpatient (BNVA) | payer BC, SELFPAY | PROVIDERS: PCP Internal Medicine; Visit Provider Physician Assistant ==

== ENCOUNTER 2025-07-23 14:46 | Outpatient (REF) | payer BC, SELFPAY ==
[2025-07-23 15:50] LABS: MANUAL DIFF FLAG NO
[2025-07-23 16:09] LABS: Hematocrit 48.6 % (42.0-52.0); Hemoglobin 16.7 g/dl (14.0-18.0); Imm Gran Abs Auto 0.03 X10*3/uL (0.00-0.03); Imm Gran Pct Auto 0.4 % (0.0-0.4); Lymphocytes Absolute Auto 2.2 X10*3/uL (1.2-4.9); Mean Corpuscular HGB Conc 34.4 g/dl (31.0-36.0); Mean Corpuscular Hemoglobin 30.7 pg (27.0-33.0); Mean Corpuscular Volume 89.3 fL (80.0-98.0); NRBC Abs Auto 0.000 X10*3/uL (0.0-0.012); NRBC Pct Auto 0.0 /100WBC (0.0-0.2); Platelet Count 164 X10*3/uL (160-400); Red Blood Count 5.44 X10*6/uL (4.60-5.80); White Blood Count 7.8 X10*3/uL (4.8-10.8)
--- OUTSIDE RECORDS SUMMARY | 2025-07-23 16:38 | XMS_ITS | Patient Health Record ---
Author Organization [facility] Address [address] [place] [address] Care Team Providers Care Automotive Machinist Name Role Phone Inez (RETIRED) Serge LIANG Primary Care Provide r Edenilson Desai Jr Unavailable Reason For Referral No Information Medications Medication SIG (Take, Route, Frequency, Duration) Notes Start Date End Date Status Losartan Potassium 50 MG Orally Active Atorvastatin Calcium 40 MG Orally Active Lasix 60 mg Active MiraLax (colon prep) 8.3 ounce (238) grams mixed with Gatorade or Crystal Light orally begin at 5:00 p.m. the day before the procedure for 1 day 02/10/2021 Active Ibuprofen PRN Active Januvia 100 MG Orally Activ e ProAir HFA Active glipiZIDE 20 mg Acti ve Sildenafil Citrate 100 MG Orally Active Omeprazole 20 MG Orally Act tony Immunizations Vaccine Route Administration Date Status Comme nts Influenza Unknown 09/16/2020 Administered Social History Tobacco Use: Social History Observation Description Date Details (start date - stop date) Former Smoker NA - NA Tobacco Use/Smoking Question Answer Notes Patient is a former smoker When did you stop smoking? 7 years ago How long has it been since you last smoked? 5-10 years Alcohol Screen Question Answer Notes Did you have a drink contain ing alcohol in the past year? Yes How often did you have a dri nk containing alcohol in the past year? Monthly or less (1 point) How often did you have 6 or more drinks on one occasion in the past year? Never (0 point) Points 1 Interpretation Negative Problems Problem Type SNOMED Code ICD Code Onset Dates Problem Status W/U Status Risk Notes Problem 258310062 Colon cancer screening (Z12.11) Active confirmed Problem [id number] Gastroesophageal reflux disease without esophagitis (K21.9) Active confirmed Plan Of Treatment Future Test Test Name Order Date UPPER GI ENDOSCOPY 02/10/2021 COLONOSCOPY 02/10/2021 Insurance Providers Payer Name Payer Address Payer Phone Subscriber Number Group Number Insured Name Patient Relationship to Insured Coverage Start Date Coverage End Date [facility] [address] [place], [place] [id number] BRIJESH KUMAR Self - patient is the insured Medical (General) History Medical History History ICD Code hypertension Diabetes II hyperlipidemia acid reflux Surgical History Surgery Date(Month/Year) Cardiac catheterization
[2025-07-23 17:08] LABS: Alanine Aminotransferase 18 U/L (0-40); Albumin Level 4.7 g/dL (3.5-5.0); Alkaline Phosphatase 72 U/L (39-117); Anion Gap 12 (12-20); Aspartate Amino Transferase 22 U/L (5-37); Blood Urea Nitrogen 12 mg/dL (9-16); Calcium 9.9 mg/dL (8.4-10.2); Carbon Dioxide 28 mmol/L (22-29); Chloride 100 mmol/L (96-108); Cholesterol 172 mg/dL (<200); Estimated Glomerular Filt Rate > 60; HDL Cholesterol 31 mg/dL (>40); Potassium 3.9 mmol/L (3.3-5.1); Sodium 136 mmol/L (135-145); Total Protein 7.4 g/dL (6.5-8.0); Triglycerides 106 mg/dL (<150)
== END 2025-07-23 14:47 | disposition home or self-care (01) ==
LOC: HO.LAB 14:46
PROVIDERS: Absent Provider Physician Assistant; PCP Internal Medicine; Visit Provider Physician Assistant Medical
DX: R40.0 Somnolence (principal); G47.33 Obstructive sleep apnea (adult) (pediatric); J45.20 Mild intermittent asthma, uncomplicated; E11.65 Type 2 diabetes mellitus with hyperglycemia; I10 Essential (primary) hypertension
CPT/HCPCS: 36415; 80048; 80061; 80076; 83036; 84443; 85025

== ENCOUNTER 2025-07-23 14:46 | Outpatient (AMB) | payer BC, SELFPAY ==
--- NOTE | 2025-07-23 14:48 | MHC.PC.OV ---
Vital Signs 07/23/25 14:55 Height 6 ft 5 in Weight 223 lb BMI 26.4 BP 140/84 H Respiration 17 Pulse 87 Pulse Source Pulse Oximeter Temp 98.6 F Temp Source Temporal Artery Scan Pulse Oximetry (%) 98 Oxygen Delivery Method Room Air Intake Visit Reasons: Routine/ Lack of Energy / Tired Product Marketing Consultant Required: No Accompanied by: Self / Same As Patient Allergies No Known Allergies Allergy (Unknown, Verified 07/25/25 10:42) NO KNOWN ALLERGIES Medication List - Last Reconciled 07/23/25 by FLOR Rubi albuterol sulfate 90 mcg/actuation (Ventolin HFA) 2 puffs inhalation Q4-6H PRN atorvastatin 40 mg PO DAILY fluticasone propionate 250 mcg/actuation 2 inhalations inhalation BID furosemide 20 mg PO ONCE losartan 75 mg (1.5 x 50 mg) PO DAILY metformin ER 1,000 mg PO ONCE omeprazole 10 mg PO DAILY sildenafil 50 mg PO DAILY PRN Tobacco use date assessed: 07/23/25 HPI HPI Comments History of Present Illness Details 54 year old male with DM, HTN, HLD, GERD, Asthma, VIBHA and smoking here in urgent visit for feeling tired. 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 He states in the past he had a CPAP but then had a follow up sleep study in 2022 and was told he did not need it anymore. He is followed by endocrinology for his DM. He is on Metformin 1000mg and Lantus 15 units. He is not checking his BS regularly. He believes he has a follow up next week. He is on Furosemide and Losartan. His BP today was 140/84. He needs a refill of Albuterol for asthma, Flonase for allergies and Furosemide. [facility] Medical History VIBHA on CPAP Asthma Costochondritis Diabetes HTN (hypertension) Asthma COPD (chronic obstructive pulmonary disease) Surgical History History of colonoscopy (~02/24/21) Hx of oral surgery Hx of cardiac catheterization Social History Alcohol intake: current Alcohol intake frequency: holidays/special occasions only Patient Tobacco Use Status: Current everyday Tobacco user Tobacco use type: Cigarette Cigarette Packs Per Day: 1 Cigarettes Per Day: 20 e-Cigarette/Vaping Use: Never Used Questionnaire AUDIT C Alcohol Use Questionnaire (AUDIT-C) 1. How often do you have a drink containing alcohol?: Monthly or less 2. How many drinks containing alcohol do you have on a typical day when you are drinking?: 1 or 2 3. How often do you have six or more drinks on one occasion?: Never Total Score: 1 Review of Systems Const Details: CONSTITUTIONAL Fatigue Daytime sleepiness 15 lb weight loss in past 3 months HEAD/NECK Negative EAR/NOSE/MOUTH/THROAT Negative RESPIRATORY Negative CARDIOVASCULAR Negative GASTROINTESTINAL Negative NEUROLOGICAL Negative PSYCHIATRIC Negative Physical exam (Primary Care) Vital Signs: Last Vital Signs Temp 98.6 F 07/23/25 14:55 Pulse 87 07/23/25 14:55 Resp 17 07/23/25 14:55 BP 140/84 H 07/23/25 14:55 Pulse Ox 98 07/23/25 14:55 Oxygen Delivery Method Room Air 07/23/25 14:55 BMI result Body Mass Index 26.4 GENERAL Well developed, Well nourished, in no apparent distress HEENT Head-Normocephalic Eyes- PERRLA, EOMI, Conjuctiva clear, lids WNL Ears- Canals clear, TMs WNL Mouth/Throat-No lesions, no erythema, no exudate Neck- Supple, No lymphadenopathy, thyroid WNL RESPIRATORY Normal I:E, Clear to auscultation CARDIOVASCULAR Regular, rate and rhthym, No murmurs or rubs GASTROINTESTINAL Soft, nontender, normal bowel sounds, no masses NEUROLOGICAL Gait normal PSYCHIATRIC Oriented to person, place and time Mood and affect WNL Appearance WNL Speech WNL Thought processes WNL Tobacco/Smoking Status: Tobacco use Status Tobacco use date assessed 07/23/25 07/23/25 14:58 Patient Tobacco Use Status Current everyday Tobacco 07/23/25 14:58 Tobacco use type Cigarette 07/23/25 14:58 e-Cigarette/Vaping Use Never Used 07/23/25 14:58 Coding Level of Care Code Established Pt Est Pt Level 4 (71737) Patient Type Established Diagnoses Daytime somnolence R40.0 VIBHA (obstructive sleep apnea) G47.33 Mild intermittent asthma without complication J45.20 Asthma severity: mild Asthma persistence: intermittent Asthma complication type: uncomplicated Type 2 diabetes mellitus with hyperglycemia, without long-term current use of insulin E11.65 Diabetes mellitus type: type 2 Diabetes mellitus senior care insulin use: without intermodal owner operator truck driver use Diabetes mellitus complication status: with hyperglycemia Primary hypertension I10 Hypertension type: primary hypertension Time Spent (min) 35 Comment Time spent on chart review, H&P, Patient education, placing orders, referrals and FU Assessment & Plan Assessment & Plan (1) Daytime somnolence: Code(s): R40.0 - Somnolence Plan: Will get labs. May be due to DM. Will refer to Sleep medicine to rule out need for CPAP (2) VIBHA (obstructive sleep apnea): Comment: WITH HIS WEIGHT LOSS, HIS SLEEP APNEA HAD DDEFINITELY DECREASED IN SEVERITY. LAST SLEEP STUDY SHOWED TOTAL SLEEP TIME AHI 10.5, WHICH IS A MILD DEGREE OF VIBHA. IT IS MOSTLY POSITIONAL, IN SUPINE POSITION. TREATMENT: WEIGHT REDUCTION. AND POSITION THERAPY ( DO NOT SLEEP IN SUPINE POSITION, HE IS SLEEPING MOSTLY IN RIGHT LATERAL POSITION) HE HAS PUT ON SOME WEIGHT SINCE HIS LAST VISIT, BUT STILL DOES NOT HAVE ANY ACTIVE SYMPTOMS OF SLEEP APNEA. ENCOURAGED TO GO BACK TO DIET AND WALKING DAILY AND LOSE WEIGHT. Code(s): G47.33 - Obstructive sleep apnea (adult) (pediatric) Category: Medical Plan: Will refer to Sleep medicine to rule out need for CPAP (3) Asthma: Code(s): J45.909 - Unspecified asthma, uncomplicated Category: Medical Qualifiers: Asthma severity: mild Asthma persistence: intermittent Asthma complication type: uncomplicated Qualified Code(s): J45.20 - Mild intermittent asthma, uncomplicated Plan: Will refill Albuterol. Patient to follow up as needed if symptoms persist or worsen. (4) Diabetes: Comment: NIDDM Code(s): E11.9 - Type 2 diabetes mellitus without complications Category: Medical Qualifiers: Diabetes mellitus type: type 2 Diabetes mellitus senior care insulin use: without intermodal owner operator truck driver use Diabetes mellitus complication status: with hyperglycemia Qualified Code(s): E11.65 - Type 2 diabetes mellitus with hyperglycemia Plan: Will check labs. Patient followed by Endocrinology. (5) HTN (hypertension): Code(s): I10 - Essential (primary) hypertension Category: Medical Qualifiers: Hypertension type: primary hypertension Qualified Code(s): I10 - Essential (primary) hypertension Plan: Will refill Furosemide. Patient to monitor BP at home. Patient to follow up in 4 weeks or sooner if needed Orders: Referrals Sleep Medicine Referral R40.0 - Somnolence Medications: New fluticasone propionate 250 mcg/actuation rinse mouth after use 2 inhalations inhalation BID 60 ea 6RF for asthma control albuterol sulfate 90 mcg/actuation (Ventolin HFA) 2 puffs inhalation Q4-6H PRN 8.5 grams 6RF shortness of breath or wheezing Changed From furosemide 20 mg PO ONCE To furosemide 20 mg PO BID 180 tabs 0RF
[2025-07-23 14:55] VITALS: BP 140/84; PULSE 87; RESP 17; TEMP 37; O2SAT 98; BMI 26.4
--- OUTSIDE RECORDS SUMMARY | 2025-07-23 16:07 | XMS_ITS | Clinical Summary ---
Author Organization [facility] [address] [place] [address] [place] [phone] Phone Care Team Providers Care Mechanical Fitter Name Role Phone Serge Wiley MD Primary Care Provider [phone] Allergies No known active allergies Medications atorvastatin (LIPITOR) 40 mg tablet Take 1 Tablet by mouth daily. 06/05/2024 Active furosemide (LASIX) 20 mg tablet Take 3 Tablets by mouth daily. 06/05/2024 Active losartan (COZAAR) 50 mg tablet Take 1 Tablet by mouth daily. 07/11/2024 Active omeprazole (PriLOSEC) [address] capsule Take 1 Capsule by mouth daily. 06/05/2024 Active metFORMIN XR (GLUCOPHAGE-XR) 500 mg 24 hr tablet Take 1 tablet (500 mg total) by mouth 2 (two) times a day with meals. Do not crush, chew, or split. 180 each 1 12/25/2024 Active insulin glargine (Lantus Solostar U-100 Insulin) 100 unit/mL (3 mL) injection pen Inject 10 units at bedtime, increase by 4 units every 4 days if BS above 130. Max dose 60 units 15 mL 11 05/28/2025 Active pen needle, diabetic (BD Ultra-Fine Short Pen Needle) 31 gauge x 5/16 needle Use to inject 1 times daily as directed 100 each 05/28/2025 Active Active Problems Problem Noted Date Diagnosed Date Adjustment disorder with mixed emotional feature s 05/28/2025 ADHD (attention deficit hype ractivity disorder), combined type 05/28/2025 Class 1 obesity 05/28/2025 Dysthymia 05/28/2025 Nicotine dependence 05/28/2025 COPD (chronic obstructive pu lmonary disease) ([facility] [place], [facility] [place]28) 06/05/2024 Gastroesophageal reflux disease without esophagi tis 06/05/2024 HTN (hypertension) 06/05/2024 Mixed hyperlipidemia 06/05/2024 Type II or unspecified type diabetes mellitus with renal manifestations, uncontrolled(250.42) ([facility] [place], [facility] V28) 06/05/2024 Disease due to severe acute respiratory syndrome coronavirus 2 (SARS-CoV-2) 02/24/2023 Overview (05/28/2025): Problem added by Discern Expert Encounters Date Type Department Care Team Description 07/02/2025 10:45 AM EDT Office Visit Orthopedic Surgery [place] [address] [phone] Juwan Martinez DPM Controlled type 2 diabetes mellitus with diabetic polyneuropathy, without long-term current use of insulin ([facility] [place], [facility] V28) (Primary Dx); Hammertoes of both feet; PVD (peripheral vascular disease) ([facility] [place]); Metatarsalgia of both feet; Onychomycosis 06/04/2025 Telephone Endocrinology - [address] [phone] Sara Guajardo PA 05/29/2025 Telephone Endocrinology - [address] [phone] Sara Guajardo PA 05/28/2025 1:15 PM EDT Office Visit Endocrinology [address] [phone] Sara Guajardo PA Type 2 diabetes mellitus with other specified complication, unspecified whether intermodal owner operator truck driver insulin use ([facility], [facility] V[facility]) (Primary Dx) 04/30/2025 10:15 AM EDT Office Visit Orthopedic [facility] [address] [phone] Juwan Martinez DPM Controlled type 2 diabetes mellitus with diabetic polyneuropathy, without long-term current use of insulin ([facility], [facility]) (Primary Dx); Hammertoes of both feet; PVD (peripheral vascular disease) ([facility]); Metatarsalgia of both feet; Onychomycosis; Callus 04/22/[address] [phone] Sara Guajardo PA from Last 3 Months Surgical History Surgery Date Site/Laterality Comments CARDIAC CATHETERIZATION PROCEDURE: HISTORICAL CARDIAC CATH Medical History Medical History Date Comments COPD (chronic obstructive pu lmonary disease) ([facility], [facility]) DX:COPD (chronic o bstructive pulmonary disease) ([facility]) Anxiety state DX:Anxiety state Type II or unspecified type diabetes mellitus with renal manifestations, uncontrolled(250.42) ([facility] V24, [facility]) DX:Type II or unspecified ty pe diabetes mellitus with renal manifestations, uncontrolled(250.42) ([facility]) HTN (hypertension) DX:HTN (hyper tension) Mixed hyperlipidemia DX:Mixed hy perlipidemia GERD (gastroesophageal reflux disease) DX:GERD (gastroesophageal reflux disease) Family History Medical History Relation Name Comments Heart failure Brother Other: gall bladder issues Daughter Thyroid disease Daughter Coronary artery disease Father Diabetes Father Diabetes Mother Hypertension Mother Relation Name Status Comments Brother Daughter Alive Father Mother Alive Son 1 Alive Son 2 Alive Son 3 Alive Social History Tobacco Use Types Packs/Day Years Used Date Smoking Tobacco: Every Day Cigarettes Tobacco Cessation:Ready to Q uit: Not Asked; Counseling Given: Not Answered Sex and Gender Information Value Date Recorded Sex Assigned at Not on file Legal Sex Male 11:03 AM EDT Gender Identity Not on file Sexual Orientation Not on file Obstetrics History Last Filed Vital Signs Vital Sign Reading Time Taken Comments Blood Pressure 104/60 05/28/2025 1:31 PM EDT C Pulse 90 05/28/2025 1:31 PM EDT Temperature 36.1 C (96.9 F) 05/28/2025 1:31 PM EDT Respiratory Rate - - Oxygen Saturation 96% 02/06/2025 1:14 PM EDT Inhaled Oxygen Concentration - - Weight 101 kg (222 lb 3.2 oz) 05/28/2025 1:31 PM EDT Height 195.6 cm (6' 5 ) 05/28/2025 1:31 PM EDT Body Mass Index 26.35 05/28/2025 1:31 PM EDT Plan of Treatment Upcoming Encounters Date Type Department Care Team (Late st Contact Info) Description 08/28/2025 1:15 PM EDT Office Visit Endocrinology [facility] [address] [place] [phone] Sara Guajardo PA [address] [place] [address] 09/04/2025 10:45 AM EDT Office Visit Orthopedic Surgery [facility] 250 175 [facility] [address] [place] [phone] Juwan Martinez DPM [address] [place] [phone] Health Maintenance Due Date Last Done Comments Diabetes: Annual Foot Exam 1980 Diabetes: Annual Retina Eye Exam 1980 DTaP,Tdap,and Td Vaccines (1 - Tdap) 1989 Hepatitis B Vaccines (1 of 3 - 19+ 3-dose series) 1989 Pneumococcal Vaccine: 50+ Years (1 of 2 - PCV) 1989 Zoster Vaccines (1 of 2) 2020 Colorectal Cancer Screening: Colonoscopy 06/21/2024 HIV Screening 06/21/2024 Hepatitis C Screening 06/21/2024 Social Influencers of Health Screening 06/21/2024 COVID-19 Vaccine (3 - 2023- season) 2024 05/07/2021, 04/16/2021 Depression Screening 11/27/2024 Influenza Vaccine (#1) 2025 , 09/01/2018, 09/04/2017 Diabetes: Blood Sugar Control Test (HGBA1C) 11/28/2025 05/28/2025, 02/06/2025, 08/01/2024, Additional history exists Diabetes: Annual GFR (Glomerular Filtration Rate) 02/06/2026 02/06/2025, 08/01/2024, 08/01/2024 Hypertension/CHF/CAD Annual BMP Blood Test 02/06/2026 02/06/2025, 08/01/2024, 08/01/2024 Diabetes: Annual Urine Albumin-Creatinine Ratio (uACR) 05/28/2026 05/28/2025 Cholesterol Screening (Lipid Panel) 02/06/2030 02/06/2025, 08/01/2024, 08/01/2024 HIB Vaccines Aged Out No longer eligi ble based on patient's age to complete this topic HPV Vaccines Aged Out No longer eligi ble based on patient's age to complete this topic Hepatitis A Vaccines Aged Out No long er eligible based on patient's age to complete this topic IPV Vaccines Aged Out No longer eligi ble based on patient's age to complete this topic MMR Vaccines Aged Out No longer eligi ble based on patient's age to complete this topic Meningococcal ACWY Vaccine Aged Out N o longer eligible based on patient's age to complete this topic Meningococcal B Vaccine Aged Out No l onger eligible based on patient's age to complete this topic RSV Immunization Patients Under 20 months Aged Out No longer eligible based on patient's age to complete this topic Varicella Vaccines Aged Out No longer eligible based on patient's age to complete this topic Procedures Procedure Name Priority Date/Time Associated Diagnosis Comments MICROALBUMIN CREATININE URINE RATIO Routine 05/28/2025 2:16 PM EDT Type 2 diabetes mellitus with other specified complication, unspecified whether [place] insulin use ([facility] V24, [facility] V28) HEMOGLOBIN A1C Routine 05/28/2025 2:16 PM EDT Type 2 diabetes mellitus with other specified complication, unspecified whether intermodal owner operator truck driver insulin use ([facility] V24, [facility] V28) POC GLUCOSE Routine 05/28/2025 1:27 PM EDT Type 2 diabetes mellitus with other specified complication, unspecified whether intermodal owner operator truck driver insulin use ([facility] V24, [facility] V28) BASIC METABOLIC PANEL Routine 02/06/2025 2:04 PM EDT Type 2 diabetes mellitus with other specified complication, unspecified whether intermodal owner operator truck driver insulin use ([facility] V24, [facility] V28) LIPID PANEL WITH REFLEX TO DIRECT LDL Routine 02/06/2025 2:04 PM EDT Type 2 diabetes mellitus with other specified complication, unspecified whether intermodal owner operator truck driver insulin use ([facility] V24, [facility] V28) from Last 3 Months or Most Recently Relevant to Health Maintenance Results * (ABNORMAL) Microalbumin creatinine urine ratio (05/28/2025 2:16 PM EDT) Creatinine, Urine 46.0 mg/dL LAB CHEMISTRY METHOD 05/28/2025 5:54 PM EDT [facility] Microalb, Ur 86.0(H) 0.0 - 29.0 mg/L LAB CHEMISTRY METHOD 05/28/2025 5:54 PM EDT [facility] Microalb/Crea t Ratio 187(H) <30 mg/g creat LAB CHEMISTRY METHOD 05/28/2025 5:54 PM EDT [facility] Urine Urine specimen from urethra / Unknown Non-blood Collection / Unknown 05/28/2025 2:16 PM EDT 05/28/2025 2:16 PM EDT Sara RAY LAB URINE ORDERABLES Final Result [facility] [address] [place] [address], * (ABNORMAL) Hemoglobin A1c (05/28/2025 2:16 PM EDT) Hemoglobin A1C 11.6(H) <6.5 % LAB CHEMISTRY METHOD 05/28/2025 10:22 PM EDT [facility] Mean Bld Glu Estim. 286 mg/dL LAB CHEMISTRY METHOD 05/28/2025 10:22 PM EDT [facility] Blood Venous blood specimen / Unknown Venipuncture / Unknown 05/28/2025 2:16 PM EDT 05/28/2025 2:16 PM EDT us Sara RAY LAB BLOOD ORDERABLES Final Result [facility] [address] [place] [address], [place] [phone] * POC glucose manually resulted (05/28/2025 1:27 PM EDT) Glucose POC 368 mg/dL Comment:non fasting Blood Capillary blood specimen / Unknown 05/28/2025 1:27 PM EDT Sara RAY POINT OF CARE TEST ENTER/ED IT ORDERABLES Final Result * (ABNORMAL) Lipid panel with reflex to direct LDL (02/06/2025 2:04 PM EDT) Cholesterol 148 0 - 200 mg/dL LAB CHEMISTRY METHOD 02/06/2025 5:31 PM EDT [facility] Triglycerides 77 0 - 150 mg/dL LAB CHEMISTRY METHOD 02/06/2025 5:31 PM EDT [facility] HDL 39(L) >=40 mg/dL LAB CHEMISTRY METHOD 02/06/2025 5:31 PM EDT [facility] LDL Calculated 94 0 - 100 mg/dL LAB CHEMISTRY METHOD 02/06/2025 5:31 PM EDT [facility] VLDL Cholesterol Homar 15.4 mg/dL LAB CHEMISTRY METHOD 02/06/2025 5:31 PM EDT [facility] Non HDL Chol. (LDL+VLDL) 109 <145 mg/dL LAB CHEMISTRY METHOD 02/06/2025 5:31 PM EDT [facility] Chol/HDL Ratio 3.8 0.0 - 4.4 LAB CHEMISTRY METHOD 02/06/2025 5:31 PM EDT [facility] Blood Venous blood specimen / Unknown Venipuncture / Unknown 02/06/2025 2:04 PM EDT 02/06/2025 2:04 PM EDT us Sara RAY LAB BLOOD ORDERABLES Final Result [facility] [address] [place] [address], [place] [phone] * (ABNORMAL) Basic metabolic panel (02/06/2025 2:04 PM EDT) Sodium 134 133 - 145 mmol/L LAB CHEMISTRY METHOD 02/06/2025 5:31 PM [facility] Potassium 3.7 3.5 - 5.5 mmol/L LAB CHEMISTRY METHOD 02/06/2025 5:31 PM [facility] Chloride 99 96 - 110 mmol/L LAB CHEMISTRY METHOD 02/06/2025 5:31 PM [facility] CO2 28 21 - 32 mmol/L LAB CHEMISTRY METHOD 02/06/2025 5:31 PM [facility] Anion Gap 7 3 - 11 LAB CHEMISTRY METHOD 02/06/2025 5:31 PM [facility] Glucose 200(H) 70 - 100 mg/dL LAB CHEMISTRY METHOD 02/06/2025 5:31 PM [facility] BUN 11 5 - 25 mg/dL LAB CHEMISTRY METHOD 02/06/2025 5:31 PM [facility] Creatinine 0.70 0.70 - 1.30 mg/dL LAB CHEMISTRY METHOD 02/06/2025 5:31 PM [facility] eGFR 109 >=60 mL/min/1. 73m2 LAB CHEMISTRY METHOD 02/06/2025 5:31 PM [facility] Comment:Calculation based on the Chronic Kidney Disease Epidemiology Collaboration (CKD-EPI) equation refit without adjustment for race. BUN/Creatinine Ratio 15.7 LAB CHEMISTRY METHOD 02/06/2025 5:31 PM [facility] Calcium 9.5 8.5 - 10.5 mg/dL LAB CHEMISTRY METHOD 02/06/2025 5:31 PM EDT [facility] Blood Venous blood specimen / Unknown Venipuncture / Unknown 02/06/2025 2:04 PM EDT 02/06/2025 2:04 PM EDT us Sara RAY LAB BLOOD ORDERABLES Final Result [facility] [address] [place] [address], from Last 3 Months or Most Recently Relevant to Health Maintenance Insurance [facility] Care Teams Mechanical Fitter Relationship Specialty Start Date End Date Serge Wiley MD [address] [place] [address] Dr Kaylene [place] PCP - General 03/13/24
== END 2025-07-23 15:19 | disposition home or self-care (01) ==
LOC: HO.HMCHD 14:46
PROVIDERS: PCP Internal Medicine; Visit Provider Physician Assistant Medical
DX: E11.65 Type 2 diabetes mellitus with hyperglycemia (principal); G47.33 Obstructive sleep apnea (adult) (pediatric); J45.20 Mild intermittent asthma, uncomplicated; I10 Essential (primary) hypertension

== ENCOUNTER 2025-07-25 10:31 | Outpatient (AMB) | payer BC, SELFPAY ==
[2025-07-25 10:38] VITALS: BP 130/80; PULSE 103; O2SAT 99; BMI 26.3
--- NOTE | 2025-07-25 10:38 | A.OFFVIS_ITS ---
Vital Signs 07/25/25 10:38 Height 6 ft 5 in Weight 221 lb 8 oz BMI 26.3 BP 130/80 Blood Pressure Location Rt brachial Position Sitting Pulse 103 H Pulse Source Pulse Oximeter Pulse Oximetry (%) 99 Oxygen Delivery Method Room Air Intake Visit Reasons: INP - Somnolence Intake Note: Patient presents [employer] Somnolence. Patient states had CPAP but had sleep study in 2022 and was told he didn't need anymore. 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 He pulled himself from driving at moment due to this issue. Accompanied by: Self / Same As Patient Allergies No Known Allergies Allergy (Unknown, Verified 07/25/25 10:42) NO KNOWN ALLERGIES HPI Comments Details: 54 year old male is a new pt. referral to us by his pcp for evaluation of VIBHA. HST 05/2022 AHI is 10 and oxygen desaturation to 77% will f/u with in lab sleep study as he has copd and to assess for RLS/PLMD. He is a smoker and quit for years and now started to zid nicotine pouches. He coughs and notices productive phlegm. 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 He will sit in traffic and nods off. He goes to bed at 1am, plays video games as his social activity since passed. He gets up at 7am and has 1-2 trips for the bathroom. Denies morning headaches, clenching jaw and bruxism. He was told he snores loudly and gasps for air. He had an MRI of the throat for bloody sputum, he was an aggressive smoker. He has T2DM, his hga1c is 11.0. BP is well managed today and pulse is 103 today, he has a h/o copd. RLS has numbness and tingling in his feet due to callouses bilaterally on plantar surface. L. foot edema. [facility], [facility] Medical History VIBHA on CPAP Asthma Costochondritis Diabetes HTN (hypertension) Asthma COPD (chronic obstructive pulmonary disease) Surgical History History of colonoscopy (~02/24/21) Hx of oral surgery Hx of cardiac catheterization Social History Alcohol intake: current Alcohol intake frequency: holidays/special occasions only Patient Tobacco Use Status: Current everyday Tobacco user Tobacco use type: Cigarette Cigarette Packs Per Day: 1 Cigarettes Per Day: 20 e-Cigarette/Vaping Use: Never Used Physical Exam Vital Signs: Last Vital Signs Pulse 103 H 07/25/25 10:38 BP 130/80 07/25/25 10:38 Pulse Ox 99 07/25/25 10:38 Oxygen Delivery Method Room Air 07/25/25 10:38 BMI result Body Mass Index 26.3 Const General: cooperative, comfortable and no acute distress Nutritional Appearance: average body habitus Orientation/consciousness: patient oriented x3 HEENT Face and sinus: Yes face symmetric Teeth and gingiva: other ([place] score is 3) Eyes Pupils: Equal, round and reactive pupils present Neck Neck: Yes full ROM Resp Effort & Inspection: normal respiratory effort and able to speak in complete sentences Neuro General: patient oriented x3 and moves all extremities Cranial nerves: Yes Equal, round and reactive pupils present, Yes Normal accommodation reflex present, Yes Normal facial strength present, Yes Midline tongue present, Yes Ability to bilaterally rotate head present and Yes Ability to bilaterally elevate shoulders present Cognition (Neuro): normal cognition Gait exam (Neuro): Normal gait present Motor exam (neuro): 5/5 motor strength present throughout and Normal motor muscle tone present throughout Psych Appearance: grossly normal Mental Status: mental status grossly normal Thought process: Normal thought process present Results Reviewed Results Reviewed: FINDINGS: Lungs are hyperinflated but clear of acute process. The heart size and pulmonary vascularity is normal. No gross bony abnormality seen. HST May 2022 AHI is 10 and oxygen desaturation to 77%, needs new machine and re-instatement. Assessment & Plan Assessment & Plan (1) Excessive daytime sleepiness: Code(s): G47.19 - Other hypersomnia Category: Medical (2) Neuropathy of both feet: Code(s): G57.93 - Unspecified mononeuropathy of bilateral lower limbs Category: Medical (3) Cigarette smoker: Code(s): F17.210 - Nicotine dependence, cigarettes, uncomplicated Category: Social Hx Plan PSG r/o vibha, as he has copd, is a smoker. RLS start gabapentin 300mg po at bedtime will evaluate at next visit Labs r/o deficiencies F/U in 3 months. Orders: Orders RT PSG in-lab sleep study 07/25/25 G47.19 - Other hypersomnia Vitamin D 25-OH Total 07/25/25 G47.19 - Other hypersomnia Vitamin B12 and Folate 07/25/25 G47.19 - Other hypersomnia Vitamin B1 07/25/25 G47.19 - Other hypersomnia Ferritin 07/25/25 G47.19 - Other hypersomnia Vitamin B6 07/25/25 G47.19 - Other hypersomnia Methylmalonic Acid 07/25/25 G47.19 - Other hypersomnia, G47.9 - Sleep disorder, unspecified, R53.83 - Other fatigue Homocysteine 07/25/25 G47.19 - Other hypersomnia, G47.9 - Sleep disorder, unspecified, R53.83 - Other fatigue Medications: New mecobal-levomefolat Ca-B6 phos 2-3-35 mg (Metanx FC) 1 cap PO DAILY 90 caps 0RF 3 months F17.210 - Nicotine dependence, cigarettes, uncomplicated, G47.19 - Other hypersomnia, G57.93 - Unspecified mononeuropathy of bilateral lower limbs Patient Instructions: Sleep Hygiene provided: set a scheduled bedtime and wake time to help regulate the circadian rhythm and balance the release of pituitary hormones. Sleep in a dark room, temperatures below 68 degrees, and no devices n bed. Limit caffeinated products 6 hours prior to bed, and limit fluids 2-4 hours prior to bed. Gentle night yoga, diffusing essential oils, and playing soft music can be relaxing. Coding Level of Care Code New Pt Level 4 (40176) Diagnoses Excessive daytime sleepiness G47.19 Neuropathy of both feet G57.93 Cigarette smoker F17.210
--- OUTSIDE RECORDS SUMMARY | 2025-07-25 11:12 | XMS_ITS | Clinical Summary ---
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 Phone Serge Wiley MD Primary Care Provider [phone] Allergies No known active allergies Medications atorvastatin [...] 05/28/2025 COPD (chronic obstructive pu lmonary disease) ([facility] V24, [facility] V28) 06/05/2024 Gastroesophageal reflux disease without esophagi tis 06/05/2024 HTN (hypertension) 06/05/2024 Mixed hyperlipidemia 06/05/2024 Type II or unspecified type diabetes mellitus with renal manifestations, uncontrolled(250.42) ([facility] V24, [facility] V28) 06/05/2024 Disease due to severe acute respiratory syndrome coronavirus 2 (SARS-CoV-2) 02/24/2023 Overview (05/28/2025): Problem added by Discern Expert Encounters Date Type Department Care Team Description 07/02/2025 10:45 AM EDT Office Visit Orthopedic Surgery [place] [id number] [phone] Juwan Martinez DPM Controlled type 2 diabetes mellitus with diabetic polyneuropathy, without long-term current use of insulin ([facility] V24, [facility] V28) (Primary Dx); Hammertoes of both feet; PVD (peripheral vascular disease) ([facility] V24); Metatarsalgia of both feet; Onychomycosis 06/04/2025 Telephone Endocrinology - [address] [phone] Sara Guajardo PA 05/29/2025 Telephone Endocrinology - [address] [phone] Sara Guajardo PA 05/28/2025 1:15 PM EDT Office Visit Endocrinology [address] [phone] Sara Guajardo PA Type 2 diabetes mellitus with other specified complication, unspecified whether exterminator helper insulin use ([facility] V24, [facility] V28) (Primary Dx) 04/30/2025 10:15 AM EDT Office Visit Orthopedic [facility] [address] [phone] Juwan Martinez DPM Controlled type 2 diabetes mellitus with diabetic polyneuropathy, without long-term current use of insulin ([facility] V24, [facility] V28) (Primary Dx); Hammertoes of both feet; PVD (peripheral vascular disease) ([facility] V24); Metatarsalgia of both feet; Onychomycosis; Callus from Last 3 Months Surgical History Surgery Date Site/Laterality Comments CARDIAC CATHETERIZATION PROCEDURE: HISTORICAL CARDIAC CATH Medical History Medical History Date Comments COPD (chronic obstructive pu lmonary disease) ([facility] V24, [facility] V28) DX:COPD (chronic o bstructive pulmonary disease) ([facility]) Anxiety state DX:Anxiety state Type II or unspecified type diabetes mellitus with renal manifestations, uncontrolled(250.42) ([facility] V24, [facility] V28) DX:Type II or unspecified ty pe diabetes mellitus with renal manifestations, uncontrolled(250.42) ([facility]) HTN (hypertension) DX:HTN (hyper tension) [...] 08/28/2025 1:15 PM EDT Office Visit Endocrinology [facility] [address] [place] [phone] Sara Guajardo PA [address] [place] [address] 09/04/2025 10:45 AM EDT Office Visit Orthopedic Surgery - [place] [address] [place] [phone] Juwan Martinez DPM [address] [place] [phone] Health Maintenance Due Date Last Done Comments [...] mellitus with other specified complication, unspecified whether fpc insulin use ([facility] V24, [facility] V28) HEMOGLOBIN A1C Routine 05/28/2025 2:16 PM EDT Type 2 diabetes mellitus with other specified complication, unspecified whether fpc insulin use ([facility] V24, [facility] V28) POC GLUCOSE Routine 05/28/2025 1:27 PM EDT Type 2 diabetes mellitus with other specified complication, unspecified whether exterminator helper insulin use ([facility] V24, [facility] V28) BASIC METABOLIC PANEL Routine 02/06/2025 2:04 PM EDT Type 2 diabetes mellitus with other specified complication, unspecified whether fpc insulin use ([facility] V24, [facility] V28) LIPID PANEL WITH REFLEX TO DIRECT LDL Routine 02/06/2025 2:04 PM EDT Type 2 diabetes mellitus with other specified complication, unspecified whether fpc insulin use ([facility] V24, [facility] V28) from Last 3 Months or Most Recently Relevant to Health Maintenance Results * (ABNORMAL) Microalbumin creatinine urine ratio (05/28/2025 2:16 PM EDT) Creatinine, Urine 46.0 mg/dL LAB CHEMISTRY METHOD 05/28/2025 5:54 PM EDT [facility] Microalb, Ur 86.0(H) 0.0 - 29.0 mg/L LAB CHEMISTRY METHOD 05/28/2025 5:54 PM EDT [facility] Microalb/Crea t Ratio 187(H) <30 mg/g creat LAB CHEMISTRY METHOD 05/28/2025 5:54 PM EDT [facility] Urine Urine specimen from urethra / Unknown Non-blood Collection / Unknown 05/28/2025 2:16 PM EDT 05/28/2025 2:16 PM EDT Sara RAY LAB URINE ORDERABLES Final Result [facility] [address] [place] [address], * (ABNORMAL) Hemoglobin A1c (05/28/2025 2:16 PM EDT) Hemoglobin A1C 11.6(H) <6.5 % LAB CHEMISTRY METHOD 05/28/2025 10:22 PM EDT [facility] Mean Bld Glu Estim. 286 mg/dL LAB CHEMISTRY METHOD 05/28/2025 10:22 PM EDT [facility] Blood Venous blood specimen / Unknown Venipuncture / Unknown 05/28/2025 2:16 PM EDT 05/28/2025 2:16 PM EDT us Sara RAY LAB BLOOD ORDERABLES Final Result [facility] [address] [place] [address], [place] [phone] * POC glucose manually resulted (05/28/2025 1:27 PM EDT) [facility] Glucose POC 368 mg/dL Comment:non fasting Blood Capillary blood specimen / Unknown 05/28/2025 1:27 PM EDT Sara RAY POINT OF CARE TEST ENTER/ED IT ORDERABLES Final Result * (ABNORMAL) Lipid panel with reflex to direct LDL (02/06/2025 2:04 PM EDT) [facility] Cholesterol 148 0 - 200 mg/dL LAB CHEMISTRY METHOD 02/06/2025 5:31 PM EDT [facility] Triglycerides 77 0 - 150 mg/dL LAB CHEMISTRY METHOD 02/06/2025 5:31 PM EDT [facility] HDL 39(L) >=40 mg/dL LAB CHEMISTRY METHOD 02/06/2025 5:31 PM EDT [facility] LDL Calculated 94 0 - 100 mg/dL LAB CHEMISTRY METHOD 02/06/2025 5:31 PM EDT [facility] VLDL Cholesterol Homar 15.4 mg/dL LAB CHEMISTRY METHOD 02/06/2025 5:31 PM EDT [facility] Non HDL Chol. (LDL+VLDL) 109 <145 mg/dL LAB CHEMISTRY METHOD 02/06/2025 5:31 PM EDT [facility] Chol/HDL Ratio 3.8 0.0 - 4.4 LAB CHEMISTRY METHOD 02/06/2025 5:31 PM EDT [facility] Blood Venous blood specimen / Unknown Venipuncture / Unknown 02/06/2025 2:04 PM EDT 02/06/2025 2:04 PM EDT us Sara RAY LAB BLOOD ORDERABLES Final Result [facility] [address] [place] [address], * (ABNORMAL) Basic metabolic panel (02/06/2025 2:04 PM EDT) Sodium 134 133 - 145 mmol/L LAB CHEMISTRY METHOD 02/06/2025 5:31 PM EDT [facility] Potassium 3.7 3.5 - 5.5 mmol/L LAB CHEMISTRY METHOD 02/06/2025 5:31 PM [facility] Chloride 99 96 - 110 mmol/L LAB CHEMISTRY METHOD 02/06/2025 5:31 PM [facility] CO2 28 21 - 32 mmol/L LAB CHEMISTRY METHOD 02/06/2025 5:31 PM [facility] Anion Gap 7 3 - 11 LAB CHEMISTRY METHOD 02/06/2025 5:31 PM [facility] Glucose 200(H) 70 - 100 mg/dL LAB CHEMISTRY METHOD 02/06/2025 5:31 PM [facility] BUN 11 5 - 25 mg/dL LAB CHEMISTRY METHOD 02/06/2025 5:31 PM [facility] Creatinine 0.70 0.70 - 1.30 mg/dL LAB CHEMISTRY METHOD 02/06/2025 5:31 PM [facility] eGFR 109 >=60 mL/min/1. 73m2 LAB CHEMISTRY METHOD 02/06/2025 5:31 PM [facility] Comment:Calculation based on the Chronic Kidney Disease Epidemiology Collaboration (CKD-EPI) equation refit without adjustment for race. BUN/Creatinine Ratio 15.7 LAB CHEMISTRY METHOD 02/06/2025 5:31 PM [facility] Calcium 9.5 8.5 - 10.5 mg/dL LAB CHEMISTRY METHOD 02/06/2025 5:31 PM [facility] Blood Venous blood specimen / Unknown Venipuncture / Unknown 02/06/2025 2:04 PM EDT 02/06/2025 2:04 PM EDT Sara RAY LAB BLOOD ORDERABLES Final Result [facility] [address] [place] [address], from Last 3 Months or Most Recently Relevant to Health Maintenance Insurance [facility] Care Teams Meat Cutter Apprentice Relationship Specialty Start Date End Date Serge Wiley MD [address] [place] [address] Dr Kaylene [place] PCP - General 03/13/24
== END 2025-07-25 11:28 | disposition home or self-care (01) ==
LOC: HO.HSMS 10:32
PROVIDERS: PCP Physician Assistant Medical; Visit Provider Physician Assistant Medical
DX: G47.19 Other hypersomnia (principal); G57.93 Unspecified mononeuropathy of bilateral lower limbs; F17.210 Nicotine dependence, cigarettes, uncomplicated
CPT/HCPCS: 99204

== ENCOUNTER 2025-08-13 15:08 | Outpatient (AMB) | payer BC, SELFPAY ==
[2025-08-13 08:49] VITALS: BP 128/80; PULSE 100; O2SAT 99; BMI 26.4
--- NOTE | 2025-08-13 08:49 | MHC.PC.OV ---
Vital Signs 08/13/25 08:49 Height 6 ft 5 in Weight 223 lb BMI 26.4 BP 128/80 Blood Pressure Location Rt brachial Position Sitting Pulse 100 Pulse Source Pulse Oximeter Pulse Oximetry (%) 99 Oxygen Delivery Method Room Air Intake Visit Reasons: 3 week f/u-labs Traffic Control Supervisor Required: No Accompanied by: Self / Same As Patient Allergies No Known Allergies Allergy (Unknown, Verified 08/13/25 08:49) NO KNOWN ALLERGIES Medication List - Last Reconciled 08/18/25 by FLOR Rubi albuterol sulfate 90 mcg/actuation (Ventolin HFA) 2 puffs inhalation Q4-6H PRN atorvastatin 40 mg PO DAILY fluticasone propionate 250 mcg/actuation 2 inhalations inhalation BID furosemide 20 mg PO BID losartan 75 mg (1.5 x 50 mg) PO DAILY mecobal-levomefolat Ca-B6 phos 2-3-35 mg (Metanx FC) 1 cap PO DAILY 3 months metformin ER 1,000 mg PO ONCE omeprazole 10 mg PO DAILY sildenafil 50 mg PO DAILY PRN Tobacco use date assessed: 08/13/25 Dental Screening Dental Screen Date: 08/13/25 Did you have a dental visit in the last 12 months?: No Did you have a dental problem in the last 6 months where you did not have access to dental care?: No HPI HPI Comments History of Present Illness Details 55 year old male with DM, HTN, HLD , GERD, Asthma, OS A and smoking here presenting for diabetes mellitus management. He is currently on insulin therapy, administering 54 units, with blood glucose readings showing variability, including a high of 202 mg/dL and a low of 120 mg/dL. No episodes of hypoglycemia have been reported. His labs on 07/23 showed glucose of 278 with A1C of 11.3% He states that since he increased his Lantus to 54 untis and his blood sugar has improved. He is still taking Metoformin 1000mg BID. He continues to have daytime sleepiness. He was seen by Sleep medicine and will be having overnight sleep study in October. His excessive daytime sleepiness has been noted, affecting his ability to work, especially in driving roles. He has voluntarily stopped driving to avoid accidents due to nodding off. He needs FMLA forms completed. He has not worked since 07/22. He would like to back to work on 08/18 with light duty including not driving. Patient was informed and verbally consented to the use of an ambient scribe for clinic note documentation during this visit. [facility] Medical History VIBHA on CPAP Asthma Costochondritis Diabetes HTN (hypertension) Asthma COPD (chronic obstructive pulmonary disease) Surgical History History of colonoscopy (~02/24/21) Hx of oral surgery Hx of cardiac catheterization Family History (Updated 08/13/25 @ 15:30 by Yazmin Toledo MA) Mother No problems noted. Father No problems noted. Social History Housing: House Alcohol intake: current Alcohol intake frequency: holidays/special occasions only Patient Tobacco Use Status: Current everyday Tobacco user Tobacco use type: Cigarette Cigarette Packs Per Day: 1 Cigarettes Per Day: 20 e-Cigarette/Vaping Use: Never Used service: No Current occupational status: retired Current occupational exposures/hazards: No Cognitive needs: No Hearing needs: No Vision needs: No Questionnaire PHQ-9 Over the last 2 weeks, how often have you been bothered by any of the following problems? 1. Little interest or pleasure in doing things: not at all 2. Feeling down, depressed, or hopeless: not at all 3. Trouble falling or staying asleep, or sleeping too much: not at all 4. Feeling tired or having little energy: not at all 5. Poor appetite or overeating: not at all 6. Feeling bad about yourself - or that you are a failure or have let yourself or your family down: not at all 7. Trouble concentrating on things, such as reading the newspaper or watching television: not at all 8. Moving or speaking so slowly that other people could have noticed. Or the opposite - being so fidgety or restless that you have been moving around a lot more than usual: not at all 9. Thoughts that you would be better off or of hurting yourself in some way: not at all Total score: 0 Depression Screening Interpretation: Negative Depression Screening Done: Yes Source: Developed by Drs. Luis Manuel Lemon, Geovanna Stubbs, Deandre Valenzuela and colleagues, with an educational leeroy from [employer]. Thrive Questionnaire Date Thrive assessed: 08/13/25 I am a: Patient Within the past 12 months, did the food you bought not last and you didn't have the money to get more?: Never true Within the past 12 months, did you worry whether your food would run out before you got money to buy more?: Never true Do you have trouble paying for medicines?: No Do you have trouble getting transportation to medical appointments?: No Do you have trouble paying your heating and electricity bill?: No Do you have trouble taking care of your child, family member or friend?: No Do you have trouble with day-to-day activities such as bathing, preparing meals, shopping, managing finances, etc.?: No Are you currently unemployed and looking for a job?: No Are you interested in more education?: No THRIVE Score: 0 AUDIT C Alcohol Use Questionnaire (AUDIT-C) 1. How often do you have a drink containing alcohol?: Monthly or less 2. How many drinks containing alcohol do you have on a typical day when you are drinking?: 1 or 2 3. How often do you have six or more drinks on one occasion?: Less than monthly Total Score: 2 HILL-7 AMB Questionnaire HILL-7 Date HILL - 7 assessed: 08/13/25 Feeling nervous, anxious, or on edge: 3 = Nearly every day Not being able to stop or control worryin = Not at all Worrying too much about different things: 0 = Not at all Trouble relaxin = Not at all Being so restless that it is hard to sit still: 0 = Not at all Becoming easily annoyed or irritable: 0 = Not at all Feeling afraid as if something awful might happen: 0 = Not at all Total HILL-7 score (0-4 normal; 5-9 mild; 10-14 moderate; 15-21 severe): 3 Source: Developed by Drs. Luis Manuel Lemon, Geovanna Stubbs, Deandre Valenzuela and colleagues, with an educational leeroy from [employer]. Review of Systems Const Details: CONSTITUTIONAL No recent weight loss HEAD/NECK Negative RESPIRATORY Negative CARDIOVASCULAR Negative GASTROINTESTINAL Negative MUSCULOSKELETAL Negative NEUROLOGICAL Reports excessive daytime sleepiness, denies other neurological symptoms PSYCHIATRIC Negative Physical exam (Primary Care) Vital Signs: Last Vital Signs Pulse 100 08/13/25 08:49 BP 128/80 08/13/25 08:49 Pulse Ox 99 08/13/25 08:49 Oxygen Delivery Method Room Air 08/13/25 08:49 BMI result Body Mass Index 26.4 GENERAL Well developed, Well nourished, in no apparent distress HEENT Head-Normocephalic Neck- Supple, No lymphadenopathy, thyroid WNL RESPIRATORY Normal I:E, Clear to auscultation CARDIOVASCULAR Regular, rate and rhythm, No murmurs or rubs NEUROLOGICAL Gait normal PSYCHIATRIC Oriented to person, place and time Mood and affect WNL Appearance WNL Speech WNL Thought processes WNL Tobacco/Smoking Status: Tobacco use Status Tobacco use date assessed 08/13/25 08/13/25 08:52 Patient Tobacco Use Status Current everyday Tobacco 08/13/25 08:52 Tobacco use type Cigarette 08/13/25 08:52 e-Cigarette/Vaping Use Never Used 08/13/25 08:52 PHQ-9: PHQ-9 Score PHQ-9: Total score 0 08/18/25 00:13 Depression Screening Interpretation: Negative Thrive Assessment: Date of Thrive Assessment Date Thrive assessed 08/13/25 08/13/25 08:52 Coding Level of Care Code Established Pt Est Pt Level 4 (79861) Patient Type Established Diagnoses Type 2 diabetes mellitus with hyperglycemia, without long-term current use of insulin E11.65 Diabetes mellitus type: type 2 Diabetes mellitus nursing home insulin use: without nursing home use Diabetes mellitus complication status: with hyperglycemia VIBHA (obstructive sleep apnea) G47.33 Excessive daytime sleepiness G47.19 Time Spent (min) 30 Comment Time spent on Medication reconciliation, Lab review, patient education and form completion Assessment & Plan Assessment & Plan (1) Diabetes: Comment: NIDDM Code(s): E11.9 - Type 2 diabetes mellitus without complications Category: Medical Qualifiers: Diabetes mellitus type: type 2 Diabetes mellitus nursing home insulin use: without nursing home use Diabetes mellitus complication status: with hyperglycemia Qualified Code(s): E11.65 - Type 2 diabetes mellitus with hyperglycemia Plan: The plan includes increasing insulin dosage to 56 units and scheduling follow-up blood work in three to four weeks. The patient should monitor blood glucose levels and report any hypoglycemic episodes. Follow up after lab work (2) VIBHA (obstructive sleep apnea): Code(s): G47.33 - Obstructive sleep apnea (adult) (pediatric) Category: Medical Plan: A sleep study is scheduled for October to assess the condition. The patient should avoid driving and operating heavy machinery until further notice. (3) Excessive daytime sleepiness: Code(s): G47.19 - Other hypersomnia Category: Medical Plan: FMLA and light duty forms completed. Patient to follow up in 4-6 weeks. Plan We discussed increasing the insulin dosage to 56 units to improve blood glucose control and scheduled follow-up blood work in three to four weeks. The patient was informed about the scheduled sleep study in October and advised to avoid driving until the condition is better managed. Patient Instructions: - Increase insulin dosage to 56 units as discussed. - Monitor blood glucose levels closely and report any low readings. - Avoid driving and operating heavy machinery until further notice. - Attend the scheduled sleep study in October.
== END 2025-08-13 16:08 | disposition home or self-care (01) ==
LOC: HO.HMCHD 15:09
PROVIDERS: PCP Physician Assistant Medical; Visit Provider Physician Assistant Medical
DX: E11.65 Type 2 diabetes mellitus with hyperglycemia (principal); G47.33 Obstructive sleep apnea (adult) (pediatric); G47.19 Other hypersomnia

== ENCOUNTER → 2025-09-04 20:30 | Outpatient (REF) | payer BC, SELFPAY | LOC: HO.SL 20:30 | PROVIDERS: PCP Physician Assistant Medical; Visit Provider Physician Assistant Medical | DX: G47.19 Other hypersomnia (principal) | CPT/HCPCS: 95810 ==

== ENCOUNTER → 2025-09-04 20:55 | Outpatient (BNV) | payer BC, SELFPAY | PROVIDERS: PCP Physician Assistant Medical; Visit Provider Psychiatry & Neurology Neurology | DX: G47.10 Hypersomnia, unspecified (principal) | CPT/HCPCS: 95810 ==

== ENCOUNTER 2025-09-09 16:33 | Outpatient (AMB) | payer BC, SELFPAY ==
--- NOTE | 2025-09-08 14:01 | MHC.PC.OV ---
Vital Signs 09/09/25 16:43 Height 6 ft 5 in Weight 225 lb BMI 26.7 BP 124/82 Blood Pressure Location Lt brachial Position Sitting Pulse 92 Pulse Source Pulse Oximeter Temp 98.6 F Temp Source Temporal Artery Scan Pulse Oximetry (%) 98 Oxygen Delivery Method Room Air Intake Visit Reasons: 7 week f/u due to reschedule apt Etcher Hand Required: No Accompanied by: Self / Same As Patient Allergies No Known Allergies Allergy (Unknown, Verified 09/04/25 09:41) NO KNOWN ALLERGIES Medication List - Last Reconciled 09/22/25 by FLOR Rubi albuterol sulfate 90 mcg/actuation (Ventolin HFA) 2 puffs inhalation Q4-6H PRN atorvastatin 40 mg PO DAILY fluticasone propionate 250 mcg/actuation 2 inhalations inhalation BID furosemide 20 mg PO BID losartan 75 mg (1.5 x 50 mg) PO DAILY metformin ER 1,000 mg PO ONCE omeprazole 10 mg PO DAILY sildenafil 50 mg PO DAILY PRN Tobacco use date assessed: 09/09/25 Dental Screening Dental Screen Date: 09/09/25 Did you have a dental visit in the last 12 months?: Yes Did you have a dental problem in the last 6 months where you did not have access to dental care?: No HPI HPI Comments History of Present Illness Details 55 year old male with DM, HTN, HLD, GERD, Asthma, VIBHA and smoking here for follow up of diabetes management. The patient reports that his blood glucose levels have been around 220 mg/dL, with occasional drops to lower levels depending on dietary intake. He is currently administering 56 units of insulin, as advised by his it technical architect, and is monitoring his glucose levels regularly. The patient has been experiencing financial difficulties due to unemployment, which has impacted his ability to manage his diabetes effectively. He has been advised to apply for unemployment benefits to alleviate some of the financial stress Patient was informed and verbally consented to the use of an ambient scribe for clinic note documentation during this visit. . [facility] Medical History VIBHA on CPAP Asthma Costochondritis Diabetes HTN (hypertension) Asthma COPD (chronic obstructive pulmonary disease) Surgical History History of colonoscopy (~02/24/21) Hx of oral surgery Hx of cardiac catheterization Family History Mother No problems noted. Father No problems noted. Social History Housing: House Alcohol intake: current Alcohol intake frequency: holidays/special occasions only Patient Tobacco Use Status: Current everyday Tobacco user Tobacco use type: Cigarette Cigarette Packs Per Day: 1 Cigarettes Per Day: 20 e-Cigarette/Vaping Use: Never Used service: No Current occupational status: retired Current occupational exposures/hazards: No Cognitive needs: No Hearing needs: No Vision needs: No Questionnaire PHQ-9 Over the last 2 weeks, how often have you been bothered by any of the following problems? 1. Little interest or pleasure in doing things: not at all 2. Feeling down, depressed, or hopeless: several days 3. Trouble falling or staying asleep, or sleeping too much: not at all 4. Feeling tired or having little energy: not at all 5. Poor appetite or overeating: not at all 6. Feeling bad about yourself - or that you are a failure or have let yourself or your family down: not at all 7. Trouble concentrating on things, such as reading the newspaper or watching television: not at all 8. Moving or speaking so slowly that other people could have noticed. Or the opposite - being so fidgety or restless that you have been moving around a lot more than usual: not at all 9. Thoughts that you would be better off or of hurting yourself in some way: not at all Total score: 1 Depression Screening Interpretation: Negative Depression Screening Done: Yes Source: Developed by Drs. Luis Manuel Lemon, Geovanna Stubbs, Deandre Valenzuela and colleagues, with an educational leeroy from [employer]. Thrive Questionnaire Date Thrive assessed: 09/09/25 I am a: Patient Within the past 12 months, did the food you bought not last and you didn't have the money to get more?: Never true Within the past 12 months, did you worry whether your food would run out before you got money to buy more?: Never true Do you have trouble paying for medicines?: No Do you have trouble getting transportation to medical appointments?: No Do you have trouble paying your heating and electricity bill?: No Do you have trouble taking care of your child, family member or friend?: No Do you have trouble with day-to-day activities such as bathing, preparing meals, shopping, managing finances, etc.?: No Are you currently unemployed and looking for a job?: No Are you interested in more education?: No THRIVE Score: 0 AUDIT C Alcohol Use Questionnaire (AUDIT-C) 1. How often do you have a drink containing alcohol?: Monthly or less 2. How many drinks containing alcohol do you have on a typical day when you are drinking?: 1 or 2 3. How often do you have six or more drinks on one occasion?: Less than monthly Total Score: 2 HILL-7 AMB Questionnaire HILL-7 Date HILL - 7 assessed: 09/09/25 Feeling nervous, anxious, or on edge: 1 = Several days Not being able to stop or control worryin = Not at all Worrying too much about different things: 0 = Not at all Trouble relaxin = Not at all Being so restless that it is hard to sit still: 0 = Not at all Becoming easily annoyed or irritable: 0 = Not at all Feeling afraid as if something awful might happen: 0 = Not at all Total HILL-7 score (0-4 normal; 5-9 mild; 10-14 moderate; 15-21 severe): 1 Source: Developed by Drs. Luis Manuel Lemon, Geovanna Stubbs, Deandre Valenzuela and colleagues, with an educational leeroy from [employer]. Review of Systems Const Details: CONSTITUTIONAL Negative HEAD/NECK Negative RESPIRATORY Negative CARDIOVASCULAR Negative MUSCULOSKELETAL Negative NEUROLOGICAL Negative PSYCHIATRIC Negative Physical exam (Primary Care) Vital Signs: Last Vital Signs Temp 98.6 F 09/09/25 16:43 Pulse 92 09/09/25 16:43 BP 124/82 09/09/25 16:43 Pulse Ox 98 09/09/25 16:43 Oxygen Delivery Method Room Air 09/09/25 16:43 BMI result Body Mass Index 26.7 GENERAL Well developed, Well nourished, in no apparent distress HEENT Head-Normocephalic Neck- Supple, No lymphadenopathy, thyroid WNL RESPIRATORY Normal I:E, Clear to auscultation CARDIOVASCULAR Regular, rate and rhythm, No murmurs or rubs MUSCULOSKELETAL Back- nontender Joints- no swelling or deformity NEUROLOGICAL Gait normal PSYCHIATRIC Oriented to person, place and time Mood and affect WNL Appearance WNL Speech WNL Thought processes WNL Tobacco/Smoking Status: Tobacco use Status Tobacco use date assessed 09/09/25 09/08/25 14:03 Patient Tobacco Use Status Current everyday Tobacco 09/08/25 14:03 Tobacco use type Cigarette 09/08/25 14:03 e-Cigarette/Vaping Use Never Used 09/08/25 14:03 PHQ-9: PHQ-9 Score PHQ-9: Total score 1 09/09/25 16:49 Depression Screening Interpretation: Negative Thrive Assessment: Date of Thrive Assessment Date Thrive assessed 09/09/25 09/08/25 14:03 Coding Level of Care Code Established Pt Est Pt Level 3 (68121) Patient Type Established Diagnoses Type 2 diabetes mellitus with hyperglycemia, without long-term current use of insulin E11.65 Diabetes mellitus type: type 2 Diabetes mellitus buttermaker continuous churn insulin use: without snf use Diabetes mellitus complication status: with hyperglycemia Time Spent (min) 25 Comment Time spent on H&P, form completed, patient education, follow up Assessment & Plan Assessment & Plan (1) Diabetes: Comment: NIDDM Code(s): E11.9 - Type 2 diabetes mellitus without complications Category: Medical Qualifiers: Diabetes mellitus type: type 2 Diabetes mellitus buttermaker continuous churn insulin use: without snf use Diabetes mellitus complication status: with hyperglycemia Qualified Code(s): E11.65 - Type 2 diabetes mellitus with hyperglycemia Plan: The patient is advised to continue monitoring his blood glucose levels and maintain his current insulin dosage of 56 units as per it technical architect's guidance. He should follow up with his it technical architect in four weeks to review the glucose monitor data and adjust treatment if necessary. The patient is encouraged to manage his diet to help stabilize blood glucose levels and seek financial assistance to alleviate stress impacting his diabetes management. Plan During the visit, we discussed the importance of maintaining blood glucose levels and adhering to the current insulin regimen of 56 units. I advised the patient to follow up with his it technical architect in four weeks to assess the glucose monitor data and make any necessary adjustments. We also talked about the impact of financial stress on his diabetes management and explored options for financial assistance. Patient Instructions: - Continue monitoring blood glucose levels regularly. - Maintain current insulin dosage of 56 units. - Follow up with it technical architect in four weeks. - Manage diet to help stabilize blood glucose levels. -form given for patient to return to work.
[2025-09-09 16:43] VITALS: BP 124/82; PULSE 92; TEMP 37; O2SAT 98; BMI 26.7
== END 2025-09-09 17:13 | disposition home or self-care (01) ==
LOC: HO.HMCHD 16:34
PROVIDERS: PCP Physician Assistant Medical; Visit Provider Physician Assistant Medical
DX: E11.65 Type 2 diabetes mellitus with hyperglycemia (principal)

== ENCOUNTER 2025-11-18 16:18 | Outpatient (AMB) | payer BC, SELFPAY ==
--- NOTE | 2025-11-18 16:21 | A.OFFPC_ITS ---
Vital Signs 11/18/25 16:28 Height 6 ft 5 in Weight 232 lb 4 oz BMI 27.5 BP 152/93 H Blood Pressure Location Lt brachial Pulse 83 Pulse Source Pulse Oximeter Temp 97.0 F Temp Source Temporal Artery Scan Pulse Oximetry (%) 99 Oxygen Delivery Method Room Air Intake Visit Reasons: 2 Month F/u [employer] Supervisor Required: No Accompanied by: Self / Same As Patient Allergies No Known Allergies Allergy (Unknown, Verified 11/18/25 16:21) NO KNOWN ALLERGIES Medication List - Last Reconciled 12/09/25 by FLOR Rubi albuterol sulfate 90 mcg/actuation (Ventolin HFA) 2 puffs inhalation Q4-6H PRN atorvastatin 40 mg PO DAILY fluticasone propionate 250 mcg/actuation 2 inhalations inhalation BID furosemide 20 mg PO BID insulin glargine 70 units subcut QPM losartan 75 mg (1.5 x 50 mg) PO DAILY metformin ER 1,000 mg PO ONCE omeprazole 10 mg PO DAILY pen needle, diabetic (UltiCare Pen Needle) As directed sildenafil 50 mg PO DAILY PRN Tobacco use date assessed: 08/13/25 Dental Screening Dental Screen Date: 08/13/25 HPI HPI Comments History of Present Illness Details History of Present Illness The patient is a 55 year old male presenting for a follow-up visit for chronic condition management. Regarding his diabetes, he reports his blood sugar has been good on 70 units of insulin. He is taking metformin 1000 mg once daily in the morning, having reduced it from twice daily on his own. He has a follow-up appointment with his meteorological aide next month. For hypertension, his blood pressure was slightly elevated today 152/43, which he attributes to consuming an energy drink. He continues to take losartan and furosemide. His other chronic medications include atorvastatin and omeprazole. The patient reports a history of a mobile lump in his neck, which has been present for years and fluctuates in size. A previous provider had suggested it was a salivary gland issue and recommended hard candies, which was not effective. He also has a significant dental issue with two teeth, one with a major cavity, that will likely require extraction. He has a wart on his finger that causes a tingling sensation. He also recently pulled a muscle in his chest while reaching for his alarm clock. A sleep study conducted in August was negative for sleep apnea. He has an unused inhaler but denies any shortness of breath. Medical History: - Type 2 diabetes mellitus - Hypertension - Hyperlipidemia - Gastroesophageal reflux disease (GERD) - History of chest muscle strain Medications: - Insulin 70 units - Metformin 1000 mg once daily - Losartan - Furosemide - Atorvastatin - Omeprazole - Unused orange inhaler Health Maintenance - A sleep study performed in August was negative for sleep apnea. - Scheduled to see an meteorological aide ne xt month for diabetes management. - Requires dental evaluation for possibl e tooth extractions due to cavities. 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 - He reports financial stress, noting he has been living paycheck to [facility] and was recently out of work for two months. - He owns multiple cats. Results - Sleep Study (August): Negative for sl eep apnea. Patient was informed and verbally consented to the use of an ambient scribe for clinic note documentation during this visit. [facility] Medical History (Updated 12/09/25 @ 10:23 by FLOR Rubi) Asthma Asthma COPD (chronic obstructive pulmonary disease) Costochondritis Diabetes HTN (hypertension) Lymphadenopathy, cervical VIBHA on CPAP Surgical History History of colonoscopy (~02/24/21) Hx of cardiac catheterization Hx of oral surgery Family History Mother No problems noted. Father No problems noted. Social History Housing: House Alcohol intake: current Alcohol intake frequency: holidays/special occasions only Patient Tobacco Use Status: Current everyday Tobacco user Tobacco use type: Cigarette Cigarette Packs Per Day: 1 Cigarettes Per Day: 20 e-Cigarette/Vaping Use: Never Used service: No Current occupational status: retired Current occupational exposures/hazards: No Cognitive needs: No Hearing needs: No Vision needs: No Questionnaire Thrive Questionnaire Date Thrive assessed: 08/13/25 HILL-7 AMB Questionnaire HILL-7 Date HILL - 7 assessed: 08/13/25 Source: Developed by Drs. Luis Manuel Lemon, Geovanna Stubbs, Deandre Valenzuela and colleagues, with an educational leeroy from [employer]. Review of Systems Narrative Review of Systems - Neck: Reports an intermittently swollen and mobile lump on the left side of his neck. - Respiratory: Denies shortness of breath. - Musculoskeletal: Reports pulling a muscle in his chest. - Skin/Extremities: Reports a wart on one finger causing a tingling sensation. - Denies other numbness, tingling, or swelling in the extremities. - Dental: Reports a major cavity and two teeth that may need extraction. Physical exam (Primary Care) Vital Signs: Last Vital Signs Temp 97.0 F 11/18/25 16:28 Pulse 83 11/18/25 16:28 BP 152/93 H 11/18/25 16:28 Pulse Ox 99 11/18/25 16:28 Oxygen Delivery Method Room Air 11/18/25 16:28 BMI result Body Mass Index 27.5 GENERAL Well developed, Well nourished, in no apparent distress HEENT Head-Normocephalic Neck- Supple, A mobile lymph node is palpable on the left side., thyroid WNL RESPIRATORY Normal I:E, Clear to auscultation CARDIOVASCULAR Regular, rate and rhythm, No murmurs or rubs MUSCULOSKELETAL A wart is present on a finger. Joints- no swelling or deformity NEUROLOGICAL Gait normal PSYCHIATRIC Oriented to person, place and time Mood and affect WNL Appearance WNL Speech WNL Thought processes WNL Tobacco/Smoking Status: Tobacco use Status Tobacco use date assessed 08/13/25 11/18/25 16:30 Patient Tobacco Use Status Current everyday Tobacco 11/18/25 16:30 Tobacco use type Cigarette 11/18/25 16:30 e-Cigarette/Vaping Use Never Used 11/18/25 16:30 Thrive Assessment: Date of Thrive Assessment Date Thrive assessed 08/13/25 11/18/25 16:30 Coding Level of Care Code Established Pt Est Pt Level 4 (32367) Established Pt Add On Problem Visit Only Patient Type Established Diagnoses Type 2 diabetes mellitus with hyperglycemia, without long-term current use of insulin E11.65 Diabetes mellitus type: type 2 Diabetes mellitus medical assisting program director insulin use: without medical assisting program director use Diabetes mellitus complication status: with hyperglycemia Primary hypertension I10 Hypertension type: primary hypertension Lymphadenopathy, cervical R59.0 Dental caries K02.9 Wart of hand B07.9 Time Spent (min) 35 Comment Time spent on chart review, H&P, Patient education and orders. Assessment & Plan Assessment & Plan (1) Diabetes: Comment: NIDDM Code(s): E11.9 - Type 2 diabetes mellitus without complications Category: Medical Qualifiers: Diabetes mellitus type: type 2 Diabetes mellitus fpc insulin use: without medical assisting program director use Diabetes mellitus complication status: with hyperglycemia Qualified Code(s): E11.65 - Type 2 diabetes mellitus with hyperglycemia Plan: Patient to see Endocrinology. Will get A!C at Endocrine. Will have results sent. Patient will continue current medications. Will monitor. Patient will follow up in 3 months (2) HTN (hypertension): Comment: BP today 152/43 Code(s): I10 - Essential (primary) hypertension Category: Medical Qualifiers: Hypertension type: primary hypertension Qualified Code(s): I10 - Essential (primary) hypertension Plan: Patient will continue current medications. Will monitor. Patient will follow up in 3 months (3) Lymphadenopathy, cervical: Code(s): R59.0 - Localized enlarged lymph nodes Category: Medical Plan: Will watch for now. Patient to follow up in _ or sooner if symptoms persist or worsen. (4) Dental caries: Code(s): K02.9 - Dental caries, unspecified Plan: If A1C has improved, will complete forms for Dental clearance. (5) Wart of hand: Code(s): B07.9 - Viral wart, unspecified Plan: Patient to try OTC wart treatments. Patient to follow up as needed if symptoms persist or worsen. Plan Plan Patient was informed and verbally consented to the use of an ambient scribe for clinic note documentation during this visit. 1. Type 2 Diabetes Mellitus The patient's blood sugar is reportedly well-controlled with his current insulin regimen of 70 units. He reports taking metformin 1000 mg once daily instead of the previously prescribed twice daily. The plan is for the patient to continue his current medications and follow up with his meteorological aide next month. He will defer blood work until that visit, and he is to provide the A1c result to this office to complete paperwork for his dentist. 2. Hypertension Blood pressure was noted to be slighly elevated, which the patient attributed to consuming an energy drink. He will continue his current medications, including losartan and furosemide. 3. Cervical Lymphadenopathy The patient has a longstanding, intermittently swollen, mobile lymph node in his neck, which is likely reactive lymphadenopathy secondary to his significant dental caries. A salivary gland etiology is less likely given the fluctuating nature of the swelling. The recommended plan is to address the underlying dental issues. If the node becomes persistently enlarged or bothersome after dental treatment, an ultrasound can be considered for further evaluation. 4. Verruca Vulgaris The patient has a wart on his finger associated with tingling. Recommended treatment is [id number] cryotherapy. He was instructed to freeze the wart twice in one session, file the tissue, and repeat the treatment every two weeks until it resolves. It was noted that resolving the wart may also resolve the associated tingling. 5. Dental Caries The patient has significant dental decay, with two teeth that may require extraction, which is the likely cause of his reactive lymphadenopathy. Paperwork for dental clearance will be completed once an updated A1c result is obtained from his meteorological aide. Discussion Notes I discussed with the patient that the lump in his neck is a lymph node, not a salivary gland, and explained the function of the lymphatic system in fighting infection. I explained that its intermittent swelling is likely a reaction to his dental problems and should resolve once his teeth are treated. I advised that if the lymph node becomes large and does not go down, a biopsy would be considered. I explained that warts are viral and instructed him on how to use [id number] freezing products to kill the affected cells, suggesting this may also resolve the associated tingling sensation. We agreed that he would see his meteorological aide, obtain an A1c, and forward the results to me so I can complete the necessary paperwork for his dentist. I recommended he schedule a follow-up appointment in three months and request medication refills through his pharmacy as needed. Patient Instructions - Continue taking your current medications as prescribed, including insulin, losartan, furosemide, atorvastatin, and omeprazole. - You may treat the wart on your finger using an [id number] freezing kit. - Freeze it until it turns white, let it thaw, then freeze it a second time. - Afterward, file off the skin. - Repeat this treatment every two weeks until the wart is gone. - Keep your appointment with the meteorological aide next month. - After your endocrinology visit, please contact our office with your A1c lab result so we can complete the paperwork for your dentist. - Proceed with getting your dental issues, including the cavities and potential extractions, taken care of. - Schedule a follow-up appointment in our office in about three months. - If you need any medication refills, please request them through your pharmacy.
[2025-11-18 16:28] VITALS: BP 152/93; PULSE 83; TEMP 36.1; O2SAT 99; BMI 27.5
--- OUTSIDE RECORDS SUMMARY | 2025-11-18 16:59 | XMS_ITS | Clinical Summary ---
Author Organization [facility] [address] [place] [address] [place] [phone] Phone Care Team Providers Care Cutting Table Operator First Name Role Phone Serge Wiley MD Primary Care Provider [phone] Allergies No known active allergies Medications atorvastatin (LIPITOR) 40 mg tablet Take 1 Tablet by mouth daily. 4 Active furosemide (LASIX) 20 mg tablet Take 3 Tablets by mouth daily. 4 Active losartan (COZAAR) 50 mg tablet Take 1 Tablet by mouth daily. 4 Active omeprazole (PriLOSEC) [address] capsule Take 1 Capsule by mouth daily. 4 Active metFORMIN XR (GLUCOPHAGE-XR) 500 mg 24 hr tablet Take 1 tablet (500 mg total) by mouth 2 (two) times a day with meals. Do not crush, chew, or split. 180 each 1 5 Active pen needle, diabetic (BD Ultra-Fine Short Pen Needle) 31 gauge x 5/16 needle Use to inject 1 times daily as directed 100 each 11 5 Active insulin glargine (Lantus Solostar U-100 Insulin) 100 unit/mL (3 mL) injection pen Inject 70 units at bedtime, increase by 4 units every 4 days if BS above 130. Max dose 100 units 15 mL 11 5 Active blood-glucose sensor (FreeStyle Preeti 3 Plus Sensor)Indicatio ns:Type 2 diabetes mellitus with other specified complication, unspecified whether termite exterminator insulin use ([facility] V24, [facility] V28) Apply 1 sensor and change every 15 days. Box = Kit = EA 2 each 11 Active Active Problems Problem Noted Date Diagnosed Date Adjustment disorder with mixed emotional feature s 05/28/2025 ADHD (attention deficit hype ractivity disorder), combined type 05/28/2025 Class 1 obesity 05/28/2025 Dysthymia 05/28/2025 Nicotine dependence 05/28/2025 COPD (chronic obstructive pulmonary disease) 08/2024 Gastroesophageal reflux disease without esophagi tis 06/05/2024 HTN (hypertension) 06/05/2024 Mixed hyperlipidemia 06/05/2024 Type II or unspecified type diabetes mellitus with renal manifestations, uncontrolled(250.42) 06/05/2024 Disease due to severe acute respiratory syndrome coronavirus 2 (SARS-CoV-2) 02/24/2023 Overview (05/28/2025): Problem added by Discern Expert Encounters Date Type Department Care Team Description 10/07/2025 Telephone Endocrinology - [address] [phone] Sara Guajardo PA 10/03/2025 Telephone Endocrinology - [address] [phone] Sara Guajardo PA 09/26/2025 Results Follow-Up [facility] - [address] [phone] Sara Guajardo PA 09/25/2025 2:10 PM EDT Lab Draw Station - [address] Type 2 diabetes mellitus with other specified complication, unspecified whether termite exterminator insulin use ([facility] V24, [facility] V28) 09/25/2025 1:30 PM EDT Office Visit [facility] - [address] [phone] Sara Guajardo PA Type II or unspecified type diabetes mellitus with renal manifestations, uncontrolled(250.42) (CMS/HCC V24, CMS/HCC V28) (Primary Dx); Mixed hyperlipidemia; Secondary hypertension 09/04/2025 10:45 AM EDT Office Visit Orthopedic Surgery - [place] [address] [facility] [address] [place] [phone] Juwan Martinez DPM Controlled type 2 diabetes mellitus with diabetic polyneuropathy, without long-term current use of insulin ([facility] V24, [facility] V28) (Primary Dx); Hammertoes of both feet; PVD (peripheral vascular disease) ([place] [id number]); Metatarsalgia of both feet; Onychomycosis 08/28/2025 1:15 PM EDT Office Visit Endocrinology [address] [phone] Sara Guajardo PA Type 2 diabetes mellitus with other specified complication, unspecified whether termite exterminator insulin use ([facility] V24, [facility] V28) (Primary Dx); Mixed hyperlipidemia from Last 3 Months Surgical History Surgery Date Site/Laterality Comments CARDIAC CATHETERIZATION PROCEDURE: HISTORICAL CARDIAC CATH Medical History Medical History Date Comments COPD (chronic obstructive pu lmonary disease) ([place] [id number], [facility] V28) DX:COPD (chronic o bstructive pulmonary disease) ([facility]) Anxiety state DX:Anxiety state Type II or unspecified type diabetes mellitus with renal manifestations, uncontrolled(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) ([facility] V24, [facility] V28) DX:Type II or unspecified ty pe diabetes mellitus with renal manifestations, uncontrolled(250.42) ([facility]) HTN (hypertension) DX:HTN (hyper tension) Mixed hyperlipidemia [...] on file Sexual Orientation Not on file Last Filed Vital Signs Vital Sign Reading Time Taken Comments Blood Pressure 143/76 09/25/2025 1:37 PM EDT 5 m in Pulse 91 09/25/2025 1:37 PM EDT 5 min Temperature 36.7 C (98 F) 09/25/2025 1:31 PM EDT Respiratory Rate - - Oxygen Saturation 96% 02/06/2025 1:14 PM EDT Inhaled Oxygen Concentration - - Weight 104 kg (228 lb 6.4 oz) 09/25/2025 1:31 PM EDT Height 195.6 cm (6' 5 ) 09/25/2025 1:31 PM EDT Body Mass Index 27.08 09/25/2025 1:31 PM EDT Plan of Treatment Upcoming Encounters Date Type Department Care Team (Late st Contact Info) Description 12/31/2025 1:40 PM EST Office Visit Endocrinology - [place] [address] [place] [phone] Bandar Mcgraw MD [address] [place], [place] [phone] Health Maintenance Due Date Last Done Comments Colorectal Cancer Screening: Colonoscopy 1970 Diabetes: Annual Foot Exam 1980 Diabetes: Annual Retina Eye Exam 1980 DTaP,Tdap,and Td Vaccines (1 - Tdap) 1989 Hepatitis B Vaccines (1 of 3 - 19+ 3-dose series) 1989 Pneumococcal Vaccine: 50+ Years (1 of 2 - PCV) 1989 RSV Immunization Adult Patients (1 - Risk 50-74 years 1-dose series) 2020 Zoster Vaccines (1 of 2) 2020 HIV Screening 06/21/2024 Hepatitis C Screening 06/21/2024 Social Influencers of Health Screening 06/21/2024 Depression Screening 11/27/2024 COVID-19 Vaccine (3 - season) 2025 05/07/2021, 04/16/2021 Influenza Vaccine (#1) 2025 , 09/01/2018, 09/04/2017 Diabetes: Annual GFR (Glomerular Filtration Rate) 02/06/2026 02/06/2025, 08/01/2024, 08/01/2024 Hypertension/CHF/CAD Annual BMP Blood Test 02/06/2026 02/06/2025, 08/01/2024, 08/01/2024 Diabetes: Blood Sugar Control Test (HGBA1C) 03/26/2026 09/25/2025, 05/28/2025, 02/06/2025, Additional history exists Diabetes: Annual Urine Albumin-Creatinine Ratio (uACR) 05/28/2026 [...] Procedure Name Priority Date/Time Associated Diagnosis Comments HEMOGLOBIN A1C Routine 09/25/2025 2:08 PM EDT Type 2 diabetes mellitus with other specified complication, unspecified whether termite exterminator insulin use ([facility] V24, [facility] V28) POC GLUCOSE Routine 08/28/2025 1:39 PM EDT Type 2 diabetes mellitus with other specified complication, unspecified whether termite exterminator insulin use ([facility] V24, [facility] V28) MICROALBUMIN CREATININE URINE RATIO Routine 05/28/2025 2:16 PM EDT Type 2 diabetes mellitus with other specified complication, unspecified whether fci insulin use ([facility] V24, [facility] V28) BASIC METABOLIC PANEL Routine 02/06/2025 2:04 PM EDT Type 2 diabetes mellitus with other specified complication, unspecified whether termite exterminator insulin use ([facility] V24, [facility] V28) LIPID PANEL WITH REFLEX TO DIRECT LDL Routine 02/06/2025 2:04 PM EDT Type 2 diabetes mellitus with other specified complication, unspecified whether termite exterminator insulin use ([facility] V24, [facility] V28) from Last 3 Months or Most Recently Relevant to Health Maintenance Results * (ABNORMAL) Hemoglobin A1c (09/25/2025 2:08 PM EDT) Hemoglobin A1C 9.6(H) <6.5 % LAB CHEMISTRY METHOD 09/25/2025 8:16 PM EDT [facility] Mean Bld Glu Estim. 229 mg/dL LAB CHEMISTRY METHOD 09/25/2025 8:16 PM EDT [facility] Blood Venous blood specimen / Unknown Venipuncture / Unknown 09/25/2025 2:08 PM EDT 09/25/2025 2:08 PM EDT Sara RAY LAB BLOOD ORDERABLES Final Result [facility] [address] [place] [address], [place] [phone] * POC glucose manually resulted (08/28/2025 1:39 PM EDT) Glucose POC 233 mg/dL Blood Capillary blood specimen / Unknown 08/28/2025 1:39 PM EDT Sara RAY POINT OF CARE TEST ENTER/ED IT ORDERABLES Final Result * (ABNORMAL) Microalbumin creatinine urine ratio (05/28/2025 2:16 PM EDT) Creatinine, Urine 46.0 mg/dL LAB CHEMISTRY METHOD 05/28/2025 5:54 PM EDT [facility] Microalb, Ur 86.0(H) 0.0 - 29.0 mg/L LAB CHEMISTRY METHOD 05/28/2025 5:54 PM EDT [facility] Microalb/Crea t Ratio 187(H) <30 mg/g creat LAB CHEMISTRY METHOD 05/28/2025 5:54 PM EDT [facility] Urine Urine specimen from urethra / Unknown Non-blood Collection / Unknown 05/28/2025 2:16 PM EDT 05/28/2025 2:16 PM EDT us Sara RAY LAB URINE ORDERABLES Final Result [facility] [address] [place] [address], [place] [phone] * (ABNORMAL) Lipid panel with reflex to direct LDL (02/06/2025 2:04 PM EDT) Cholesterol 148 0 - 200 mg/dL LAB CHEMISTRY METHOD 02/06[facility]25 [facility] Triglycerides 77 0 - 150 mg/dL LAB CHEMISTRY METHOD 02/06/2025 5:31 PM [facility] HDL 39(L) >=40 mg/dL LAB CHEMISTRY METHOD 02/06/2025 5:31 PM EDT [facility] LDL Calculated 94 0 - 100 mg/dL LAB CHEMISTRY METHOD 02/06/2025 5:31 PM T [facility] VLDL Cholesterol Homar 15.4 mg/dL LAB CHEMISTRY METHOD 02/06/2025 5:31 PM EDT [facility] Non HDL Chol. (LDL+VLDL) 109 <145 mg/dL LAB CHEMISTRY METHOD 02/06/2025 5:31 PM EDT [facility] Chol/HDL Ratio 3.8 0.0 - 4.4 LAB CHEMISTRY METHOD 02/06/2025 5:31 PM [facility] Blood Venous blood specimen / Unknown Venipuncture / Unknown 02/06/2025 2:04 PM EDT 02/06/2025 2:04 PM EDT us Sara RAY LAB BLOOD ORDERABLES Final Result [facility] [address] [place] [address], [place] [phone] * (ABNORMAL) Basic metabolic panel (02/06/2025 2:04 PM EDT) Sodium 134 133 - 145 mmol/L LAB CHEMISTRY METHOD 02/06/2025 5:31 PM [facility] Potassium 3.7 3.5 - 5.5 mmol/L LAB CHEMISTRY METHOD 02/06/2025 5:31 PM [facility] Chloride 99 96 - 110 mmol/L LAB CHEMISTRY METHOD 02/06/2025 5:31 PM [facility] CO2 28 21 - 32 mmol/L LAB CHEMISTRY METHOD 02/06/2025 5:31 PM [facility] Anion Gap 7 3 - 11 LAB CHEMISTRY METHOD 02/06/2025 5:31 PM [facility] Glucose 200(H) 70 - 100 mg/dL LAB CHEMISTRY METHOD 02/06/2025 5:31 PM [facility] BUN 11 5 - 25 mg/dL LAB CHEMISTRY METHOD 02/06/2025 5:31 PM [facility] Creatinine 0.70 0.70 - 1.30 mg/dL LAB CHEMISTRY METHOD 02/06/2025 5:31 PM [facility] eGFR 109 >=60 mL/min/1. 73m2 LAB CHEMISTRY METHOD 02/06/2025 5:31 PM [facility] Comment:Calculation based on the Chronic Kidney Disease Epidemiology Collaboration (CKD-EPI) equation refit without adjustment for race. BUN/Creatinine Ratio 15.7 LAB CHEMISTRY METHOD 02/06/2025 5:31 PM EDT [facility] Calcium 9.5 8.5 - 10.5 mg/dL LAB CHEMISTRY METHOD 02/06/2025 5:31 PM EDT [facility] Blood Venous blood specimen / Unknown Venipuncture / Unknown 02/06/2025 2:04 PM EDT 02/06/2025 2:04 PM EDT us Sara RAY LAB BLOOD ORDERABLES Final Result [facility] ([facility]) [facility] [address] [place] [address], from Last 3 Months or Most Recently Relevant to Health Maintenance Insurance [facility] Care Teams Cutting Table Operator First Relationship Specialty Start Date End Date Serge Wiley MD [address] [place] [address] Dr Kaylene [place] PCP - General 03/13/24
--- OUTSIDE RECORDS SUMMARY | 2025-11-18 16:59 | XMS_ITS | Encounter Summary ---
Author Organization [facility] Address [address] [place] [address] Care Team Providers Care Information Services Tech Name Role Phone Serge Wiley MD Primary Care Provider [phone] Encounter Details Date Type Department Care Team (Late Contact Info) Description 09/26/2025 Results Follow-Up Endocrinology - [address] [phone] Sara Guajardo PA [address] [place] [address] Social History Tobacco Use Types Packs/Day Years Used Date Smoking Tobacco: Every Day Cigarettes Sex and Gender Information Value Date Recorded Sex Assigned at Not on file Legal Sex Male 11:03 AM EDT Gender Identity Not on file Sexual Orientation Not on file documented as of this encounter Plan of Treatment Upcoming Encounters Date Type Department Care Team (Late Contact Info) Description 12/31/2025 1:40 PM EST Office Visit Endocrinology - [address] [phone] Bandar Mcgraw MD [address] [place], [place] documented as of this encounter Visit Diagnoses Not on filedocumented in this encounter Care Teams Information Services Tech Relationship Specialty Start Date End Date Serge Wiley MD [address] [place] [address] Dr Kaylene [place] PCP - General 03/13/24 documented as of this encounter
== END 2025-11-18 16:52 | disposition home or self-care (01) ==
LOC: HO.HMCHD 16:19
PROVIDERS: PCP Physician Assistant Medical; Visit Provider Physician Assistant Medical
DX: E11.65 Type 2 diabetes mellitus with hyperglycemia (principal); I10 Essential (primary) hypertension; R59.0 Localized enlarged lymph nodes; B07.9 Viral wart, unspecified